=== PATIENT | male | born 1950 | race American Indian/Alaskan Native ===

== ENCOUNTER 2017-01-05 08:07 | Outpatient (CLI) | payer BC ==
[2017-01-05] MEDS ORDERED: XYLOCAINE TOPICAL 4% TP ONE ×2 (08:20→16:28)
== END 2017-01-05 08:08 | disposition home or self-care (01) ==
LOC: WOUND 08:07
PROVIDERS: ATTEND Surgery

== ENCOUNTER 2017-01-12 09:01 | Outpatient (CLI) | payer BC ==
[2017-01-12] MEDS ORDERED: XYLOCAINE TOPICAL 4% TP ONE ×2 (09:04→10:00)
== END 2017-01-12 09:02 | disposition home or self-care (01) ==
LOC: WOUND 09:01
PROVIDERS: ATTEND Internal Medicine
DX: I87.2 Venous insufficiency (chronic) (peripheral) (principal); L97.822 Non-pressure chronic ulcer of other part of left lower leg with fat layer exposed; I10 Essential (primary) hypertension; Z86.718 Personal history of other venous thrombosis and embolism; Z87.891 Personal history of nicotine dependence
CPT/HCPCS: 87075; 87076; 87116; 87186

== ENCOUNTER 2017-01-19 09:02 | Outpatient (CLI) | payer BC ==
[2017-01-19] MEDS ORDERED: XYLOCAINE TOPICAL 4% TP ONE (09:21)
== END 2017-01-19 09:03 | disposition home or self-care (01) ==
LOC: WOUND 09:02
PROVIDERS: ATTEND Surgery
DX: I87.2 Venous insufficiency (chronic) (peripheral) (principal); L97.822 Non-pressure chronic ulcer of other part of left lower leg with fat layer exposed; I10 Essential (primary) hypertension; Z86.718 Personal history of other venous thrombosis and embolism; Z87.891 Personal history of nicotine dependence

== ENCOUNTER 2017-01-26 09:04 | Outpatient (CLI) | payer BC ==
[2017-01-26] MEDS ORDERED: XYLOCAINE TOPICAL 4% TP ONE ×2 (09:13→10:00)
== END 2017-01-26 09:05 | disposition home or self-care (01) ==
LOC: WOUND 09:04
PROVIDERS: ATTEND Surgery
DX: I87.312 Chronic venous hypertension (idiopathic) with ulcer of left lower extremity (principal); L97.822 Non-pressure chronic ulcer of other part of left lower leg with fat layer exposed; Z86.718 Personal history of other venous thrombosis and embolism; Z87.891 Personal history of nicotine dependence

== ENCOUNTER 2017-02-02 09:06 | Outpatient (CLI) | payer BC ==
[2017-02-02] MEDS ORDERED: XYLOCAINE TOPICAL 4% TP ONE ×2 (09:24→09:28)
== END 2017-02-02 09:07 | disposition home or self-care (01) ==
LOC: WOUND 09:06
PROVIDERS: ATTEND Surgery
DX: I87.312 Chronic venous hypertension (idiopathic) with ulcer of left lower extremity (principal); L97.822 Non-pressure chronic ulcer of other part of left lower leg with fat layer exposed; I10 Essential (primary) hypertension; Z86.718 Personal history of other venous thrombosis and embolism; Z87.891 Personal history of nicotine dependence

== ENCOUNTER 2017-02-09 09:10 | Outpatient (CLI) | payer BC ==
[2017-02-09] MEDS ORDERED: XYLOCAINE TOPICAL 4% TP ONE ×2 (09:41→15:27)
== END 2017-02-09 09:11 | disposition home or self-care (01) ==
LOC: WOUND 09:10
PROVIDERS: ATTEND Surgery
DX: I87.2 Venous insufficiency (chronic) (peripheral) (principal); L97.822 Non-pressure chronic ulcer of other part of left lower leg with fat layer exposed; I10 Essential (primary) hypertension; Z86.718 Personal history of other venous thrombosis and embolism; Z87.891 Personal history of nicotine dependence

== ENCOUNTER 2017-02-16 09:11 | Outpatient (CLI) | payer BC ==
[2017-02-16] MEDS ORDERED: XYLOCAINE TOPICAL 4% TP ONE ×2 (09:59→10:30)
== END 2017-02-16 09:12 | disposition home or self-care (01) ==
LOC: WOUND 09:11
PROVIDERS: ATTEND Internal Medicine
DX: I87.2 Venous insufficiency (chronic) (peripheral) (principal); L97.822 Non-pressure chronic ulcer of other part of left lower leg with fat layer exposed; I10 Essential (primary) hypertension; Z86.718 Personal history of other venous thrombosis and embolism; Z87.891 Personal history of nicotine dependence

== ENCOUNTER 2017-02-18 11:45 | Outpatient (CLI) | payer BC | END 2017-02-18 11:46 | disposition home or self-care (01) | LOC: WOUND 11:45 | PROVIDERS: ATTEND Podiatrist | DX: L97.822 Non-pressure chronic ulcer of other part of left lower leg with fat layer exposed (principal); I82.502 Chronic embolism and thrombosis of unspecified deep veins of left lower extremity; I10 Essential (primary) hypertension; Z86.718 Personal history of other venous thrombosis and embolism; Z87.891 Personal history of nicotine dependence | CPT/HCPCS: 29580 ==

== ENCOUNTER 2017-02-22 09:07 | Outpatient (CLI) | payer BC ==
[2017-02-22] MEDS ORDERED: XYLOCAINE TOPICAL 4% TP ONE (09:18)
== END 2017-02-22 09:08 | disposition home or self-care (01) ==
LOC: WOUND 09:07
PROVIDERS: ATTEND Surgery
DX: I87.2 Venous insufficiency (chronic) (peripheral) (principal); L97.821 Non-pressure chronic ulcer of other part of left lower leg limited to breakdown of skin; I10 Essential (primary) hypertension; Z86.718 Personal history of other venous thrombosis and embolism; Z87.891 Personal history of nicotine dependence

== ENCOUNTER 2017-02-25 11:38 | Outpatient (CLI) | payer BC | END 2017-02-25 11:39 | disposition home or self-care (01) | LOC: WOUND 11:38 | PROVIDERS: ATTEND Podiatrist | DX: I87.2 Venous insufficiency (chronic) (peripheral) (principal); L97.822 Non-pressure chronic ulcer of other part of left lower leg with fat layer exposed; I10 Essential (primary) hypertension; Z86.718 Personal history of other venous thrombosis and embolism; Z87.891 Personal history of nicotine dependence; Z72.89 Other problems related to lifestyle | CPT/HCPCS: 29580 ==

== ENCOUNTER 2017-03-02 08:49 | Outpatient (CLI) | payer BC ==
[2017-03-02] MEDS ORDERED: XYLOCAINE TOPICAL 4% TP ONE (09:26)
== END 2017-03-02 08:50 | disposition home or self-care (01) ==
LOC: WOUND 08:49
PROVIDERS: ATTEND Surgery
DX: I87.2 Venous insufficiency (chronic) (peripheral) (principal); L97.822 Non-pressure chronic ulcer of other part of left lower leg with fat layer exposed; I10 Essential (primary) hypertension; Z87.01 Personal history of pneumonia (recurrent); Z86.718 Personal history of other venous thrombosis and embolism; Z87.891 Personal history of nicotine dependence; Z72.89 Other problems related to lifestyle

== ENCOUNTER 2017-03-04 11:43 | Outpatient (CLI) | payer BC | END 2017-03-04 11:44 | disposition home or self-care (01) | LOC: WOUND 11:43 | PROVIDERS: ATTEND Surgery | DX: I87.2 Venous insufficiency (chronic) (peripheral) (principal); L97.821 Non-pressure chronic ulcer of other part of left lower leg limited to breakdown of skin; I10 Essential (primary) hypertension; Z87.01 Personal history of pneumonia (recurrent); Z86.718 Personal history of other venous thrombosis and embolism; Z87.891 Personal history of nicotine dependence; Z72.89 Other problems related to lifestyle | CPT/HCPCS: 29580; G0463; 99212 ==

== ENCOUNTER 2017-03-09 09:13 | Outpatient (CLI) | payer BC ==
[2017-03-09] MEDS ORDERED: XYLOCAINE TOPICAL 4% TP ONE (09:31)
== END 2017-03-09 09:14 | disposition home or self-care (01) ==
LOC: WOUND 09:13
PROVIDERS: ATTEND Surgery
DX: I87.2 Venous insufficiency (chronic) (peripheral) (principal); L97.822 Non-pressure chronic ulcer of other part of left lower leg with fat layer exposed; I10 Essential (primary) hypertension; Z87.01 Personal history of pneumonia (recurrent); Z86.718 Personal history of other venous thrombosis and embolism; Z87.891 Personal history of nicotine dependence; Z72.89 Other problems related to lifestyle

== ENCOUNTER 2017-03-11 13:33 | Outpatient (CLI) | payer BC | END 2017-03-11 13:34 | disposition home or self-care (01) | LOC: WOUND 13:33 | PROVIDERS: ATTEND Podiatrist | DX: I87.2 Venous insufficiency (chronic) (peripheral) (principal); L97.822 Non-pressure chronic ulcer of other part of left lower leg with fat layer exposed; I10 Essential (primary) hypertension; Z86.718 Personal history of other venous thrombosis and embolism; Z87.01 Personal history of pneumonia (recurrent); Z87.891 Personal history of nicotine dependence; Z72.89 Other problems related to lifestyle | CPT/HCPCS: 29580 ==

== ENCOUNTER 2017-03-15 10:06 | Outpatient (CLI) | payer BC ==
[2017-03-15] MEDS ORDERED: XYLOCAINE TOPICAL 4% TP ONE (11:00)
== END 2017-03-15 10:07 | disposition home or self-care (01) ==
LOC: WOUND 10:06
PROVIDERS: ATTEND Surgery
DX: I87.2 Venous insufficiency (chronic) (peripheral) (principal); L97.822 Non-pressure chronic ulcer of other part of left lower leg with fat layer exposed; I10 Essential (primary) hypertension; Z87.01 Personal history of pneumonia (recurrent); Z86.718 Personal history of other venous thrombosis and embolism; Z87.891 Personal history of nicotine dependence; Z72.89 Other problems related to lifestyle

== ENCOUNTER 2017-03-18 13:23 | Outpatient (CLI) | payer BC | END 2017-03-18 13:24 | disposition home or self-care (01) | LOC: WOUND 13:23 | PROVIDERS: ATTEND Podiatrist | DX: L97.822 Non-pressure chronic ulcer of other part of left lower leg with fat layer exposed (principal); I10 Essential (primary) hypertension; Z87.01 Personal history of pneumonia (recurrent); Z86.718 Personal history of other venous thrombosis and embolism; Z87.891 Personal history of nicotine dependence; Z72.89 Other problems related to lifestyle | CPT/HCPCS: 29580; G0463; 99213 ==

== ENCOUNTER 2017-03-22 10:13 | Outpatient (CLI) | payer BC ==
[2017-03-22] MEDS ORDERED: XYLOCAINE TOPICAL 4% TP ONE ×2 (10:28→10:42)
== END 2017-03-22 10:14 | disposition home or self-care (01) ==
LOC: WOUND 10:13
PROVIDERS: ATTEND Surgery
DX: I87.2 Venous insufficiency (chronic) (peripheral) (principal); L97.822 Non-pressure chronic ulcer of other part of left lower leg with fat layer exposed; I10 Essential (primary) hypertension; Z87.01 Personal history of pneumonia (recurrent); Z86.718 Personal history of other venous thrombosis and embolism; Z87.891 Personal history of nicotine dependence; Z72.89 Other problems related to lifestyle

== ENCOUNTER 2017-03-25 12:43 | Outpatient (CLI) | payer BC | END 2017-03-25 12:44 | disposition home or self-care (01) | LOC: WOUND 12:43 | PROVIDERS: ATTEND Podiatrist | DX: I87.2 Venous insufficiency (chronic) (peripheral) (principal); L97.822 Non-pressure chronic ulcer of other part of left lower leg with fat layer exposed; I10 Essential (primary) hypertension; Z87.01 Personal history of pneumonia (recurrent); Z86.718 Personal history of other venous thrombosis and embolism; Z87.891 Personal history of nicotine dependence; Z72.89 Other problems related to lifestyle | CPT/HCPCS: 29580 ==

== ENCOUNTER 2017-03-29 09:45 | Outpatient (CLI) | payer BC ==
[2017-03-29] MEDS ORDERED: XYLOCAINE TOPICAL 2% TP ONE ×2 (10:07→10:21)
== END 2017-03-29 09:46 | disposition home or self-care (01) ==
LOC: WOUND 09:45
PROVIDERS: ATTEND Surgery
DX: I87.2 Venous insufficiency (chronic) (peripheral) (principal); L97.822 Non-pressure chronic ulcer of other part of left lower leg with fat layer exposed; I10 Essential (primary) hypertension; Z87.01 Personal history of pneumonia (recurrent); Z86.718 Personal history of other venous thrombosis and embolism; Z87.891 Personal history of nicotine dependence; Z72.89 Other problems related to lifestyle

== ENCOUNTER 2017-04-01 11:20 | Outpatient (CLI) | payer BC | END 2017-04-01 11:21 | disposition home or self-care (01) | LOC: WOUND 11:20 | PROVIDERS: ATTEND Podiatrist | DX: I87.2 Venous insufficiency (chronic) (peripheral) (principal); L97.822 Non-pressure chronic ulcer of other part of left lower leg with fat layer exposed; Z87.01 Personal history of pneumonia (recurrent); Z86.718 Personal history of other venous thrombosis and embolism; Z87.891 Personal history of nicotine dependence; Z72.89 Other problems related to lifestyle | CPT/HCPCS: 29580 ==

== ENCOUNTER 2017-04-05 09:13 | Outpatient (CLI) | payer BC ==
[2017-04-05] MEDS ORDERED: XYLOCAINE TOPICAL 4% TP ONE (09:27)
== END 2017-04-05 09:14 | disposition home or self-care (01) ==
LOC: WOUND 09:13
PROVIDERS: ATTEND Surgery
DX: I87.2 Venous insufficiency (chronic) (peripheral) (principal); L97.822 Non-pressure chronic ulcer of other part of left lower leg with fat layer exposed; I10 Essential (primary) hypertension; Z87.01 Personal history of pneumonia (recurrent); Z86.718 Personal history of other venous thrombosis and embolism; Z87.891 Personal history of nicotine dependence; Z72.89 Other problems related to lifestyle

== ENCOUNTER 2017-04-08 13:47 | Outpatient (CLI) | payer BC | END 2017-04-08 13:48 | disposition home or self-care (01) | LOC: WOUND 13:47 | PROVIDERS: ATTEND Podiatrist | DX: I87.2 Venous insufficiency (chronic) (peripheral) (principal); L97.822 Non-pressure chronic ulcer of other part of left lower leg with fat layer exposed; I10 Essential (primary) hypertension; Z87.01 Personal history of pneumonia (recurrent); Z86.718 Personal history of other venous thrombosis and embolism; Z87.891 Personal history of nicotine dependence; Z72.89 Other problems related to lifestyle | CPT/HCPCS: 29580 ==

== ENCOUNTER 2017-04-12 09:38 | Outpatient (CLI) | payer BC ==
[2017-04-12] MEDS ORDERED: XYLOCAINE TOPICAL 4% TP ONE (10:07)
== END 2017-04-12 09:39 | disposition home or self-care (01) ==
LOC: WOUND 09:38
PROVIDERS: ATTEND Surgery
DX: I87.2 Venous insufficiency (chronic) (peripheral) (principal); L97.822 Non-pressure chronic ulcer of other part of left lower leg with fat layer exposed; I10 Essential (primary) hypertension; Z87.01 Personal history of pneumonia (recurrent); Z86.718 Personal history of other venous thrombosis and embolism; Z87.891 Personal history of nicotine dependence; Z72.89 Other problems related to lifestyle

== ENCOUNTER 2017-04-15 13:12 | Outpatient (CLI) | payer BC | END 2017-04-15 13:13 | disposition home or self-care (01) | LOC: WOUND 13:12 | PROVIDERS: ATTEND Podiatrist | DX: I87.2 Venous insufficiency (chronic) (peripheral) (principal); L97.822 Non-pressure chronic ulcer of other part of left lower leg with fat layer exposed; I10 Essential (primary) hypertension; Z87.01 Personal history of pneumonia (recurrent); Z86.718 Personal history of other venous thrombosis and embolism; Z87.891 Personal history of nicotine dependence; Z72.89 Other problems related to lifestyle | CPT/HCPCS: 29580 ==

== ENCOUNTER 2017-04-19 09:41 | Outpatient (CLI) | payer BC ==
[2017-04-19] MEDS ORDERED: XYLOCAINE TOPICAL 4% TP ONE ×2 (09:55→10:17)
== END 2017-04-19 09:42 | disposition home or self-care (01) ==
LOC: WOUND 09:41
PROVIDERS: ATTEND Surgery
DX: I87.2 Venous insufficiency (chronic) (peripheral) (principal); L97.822 Non-pressure chronic ulcer of other part of left lower leg with fat layer exposed; I10 Essential (primary) hypertension; Z87.01 Personal history of pneumonia (recurrent); Z86.718 Personal history of other venous thrombosis and embolism; Z87.891 Personal history of nicotine dependence; Z72.89 Other problems related to lifestyle

== ENCOUNTER 2017-04-22 12:49 | Outpatient (CLI) | payer BC | END 2017-04-22 12:50 | disposition home or self-care (01) | LOC: WOUND 12:49 | PROVIDERS: ATTEND Podiatrist | DX: I87.2 Venous insufficiency (chronic) (peripheral) (principal); L97.822 Non-pressure chronic ulcer of other part of left lower leg with fat layer exposed; I10 Essential (primary) hypertension; Z87.01 Personal history of pneumonia (recurrent); Z86.718 Personal history of other venous thrombosis and embolism; Z87.891 Personal history of nicotine dependence; Z72.89 Other problems related to lifestyle | CPT/HCPCS: 29580 ==

== ENCOUNTER 2017-04-26 10:18 | Outpatient (CLI) | payer BC ==
[~2017-04-26 10:18] MED LIST: XYLOCAINE TOPICAL 4% TP ONE
[2017-04-26] MEDS ORDERED: XYLOCAINE TOPICAL 4% TP ONE (10:30)
== END 2017-04-26 10:19 | disposition home or self-care (01) ==
LOC: WOUND 10:18
PROVIDERS: ATTEND Surgery
DX: I87.2 Venous insufficiency (chronic) (peripheral) (principal); L97.822 Non-pressure chronic ulcer of other part of left lower leg with fat layer exposed; I10 Essential (primary) hypertension; Z87.01 Personal history of pneumonia (recurrent); Z86.718 Personal history of other venous thrombosis and embolism; Z87.891 Personal history of nicotine dependence; Z72.89 Other problems related to lifestyle

== ENCOUNTER 2017-04-29 13:05 | Outpatient (CLI) | payer BC | END 2017-04-29 13:06 | disposition home or self-care (01) | LOC: WOUND 13:05 | PROVIDERS: ATTEND Podiatrist | DX: I87.2 Venous insufficiency (chronic) (peripheral) (principal); L97.822 Non-pressure chronic ulcer of other part of left lower leg with fat layer exposed; I10 Essential (primary) hypertension; Z87.01 Personal history of pneumonia (recurrent); Z86.718 Personal history of other venous thrombosis and embolism; Z87.891 Personal history of nicotine dependence; Z72.89 Other problems related to lifestyle | CPT/HCPCS: 29580 ==

== ENCOUNTER 2017-05-03 09:17 | Outpatient (CLI) | payer BC ==
[2017-05-03] MEDS ORDERED: XYLOCAINE TOPICAL 4% TP ONE (10:08)
== END 2017-05-03 09:18 | disposition home or self-care (01) ==
LOC: WOUND 09:17
PROVIDERS: ATTEND Surgery
DX: I87.2 Venous insufficiency (chronic) (peripheral) (principal); L97.822 Non-pressure chronic ulcer of other part of left lower leg with fat layer exposed; I10 Essential (primary) hypertension; Z87.01 Personal history of pneumonia (recurrent); Z86.718 Personal history of other venous thrombosis and embolism; Z87.891 Personal history of nicotine dependence; Z72.89 Other problems related to lifestyle

== ENCOUNTER 2017-05-06 13:06 | Outpatient (CLI) | payer BC | END 2017-05-06 13:07 | disposition home or self-care (01) | LOC: WOUND 13:06 | PROVIDERS: ATTEND Podiatrist | DX: I87.2 Venous insufficiency (chronic) (peripheral) (principal); L97.822 Non-pressure chronic ulcer of other part of left lower leg with fat layer exposed; I10 Essential (primary) hypertension; Z87.01 Personal history of pneumonia (recurrent); Z86.718 Personal history of other venous thrombosis and embolism; Z87.891 Personal history of nicotine dependence; Z72.89 Other problems related to lifestyle | CPT/HCPCS: 29580 ==

== ENCOUNTER 2017-05-10 09:43 | Outpatient (CLI) | payer BC ==
[2017-05-10] MEDS ORDERED: XYLOCAINE TOPICAL 4% TP ONE ×2 (10:05→10:10)
== END 2017-05-10 09:44 | disposition home or self-care (01) ==
LOC: WOUND 09:43
PROVIDERS: ATTEND Surgery
DX: I87.2 Venous insufficiency (chronic) (peripheral) (principal); L97.822 Non-pressure chronic ulcer of other part of left lower leg with fat layer exposed; I10 Essential (primary) hypertension; Z87.01 Personal history of pneumonia (recurrent); Z86.718 Personal history of other venous thrombosis and embolism; Z87.891 Personal history of nicotine dependence; Z72.89 Other problems related to lifestyle

== ENCOUNTER 2017-05-13 12:54 | Outpatient (CLI) | payer BC | END 2017-05-13 12:55 | disposition home or self-care (01) | LOC: WOUND 12:54 | PROVIDERS: ATTEND Podiatrist | DX: I87.2 Venous insufficiency (chronic) (peripheral) (principal); L97.822 Non-pressure chronic ulcer of other part of left lower leg with fat layer exposed; I10 Essential (primary) hypertension; Z87.01 Personal history of pneumonia (recurrent); Z86.718 Personal history of other venous thrombosis and embolism; Z87.891 Personal history of nicotine dependence; Z72.89 Other problems related to lifestyle | CPT/HCPCS: 29580 ==

== ENCOUNTER 2017-05-17 09:09 | Outpatient (CLI) | payer BC ==
[2017-05-17] MEDS ORDERED: XYLOCAINE TOPICAL 4% TP ONE ×2 (09:34→09:39)
== END 2017-05-17 09:10 | disposition home or self-care (01) ==
LOC: WOUND 09:09
PROVIDERS: ATTEND Surgery
DX: I87.2 Venous insufficiency (chronic) (peripheral) (principal); L97.822 Non-pressure chronic ulcer of other part of left lower leg with fat layer exposed; I10 Essential (primary) hypertension; Z87.01 Personal history of pneumonia (recurrent); Z86.718 Personal history of other venous thrombosis and embolism; Z87.891 Personal history of nicotine dependence; Z72.89 Other problems related to lifestyle
CPT/HCPCS: C5271; Q4102

== ENCOUNTER 2017-05-20 11:12 | Outpatient (CLI) | payer BC | END 2017-05-20 11:13 | disposition home or self-care (01) | LOC: WOUND 11:12 | PROVIDERS: ATTEND Podiatrist | DX: I87.2 Venous insufficiency (chronic) (peripheral) (principal); L97.822 Non-pressure chronic ulcer of other part of left lower leg with fat layer exposed; I10 Essential (primary) hypertension; Z87.01 Personal history of pneumonia (recurrent); Z86.718 Personal history of other venous thrombosis and embolism; Z87.891 Personal history of nicotine dependence; Z72.89 Other problems related to lifestyle | CPT/HCPCS: 29580 ==

== ENCOUNTER 2017-05-24 09:35 | Outpatient (CLI) | payer BC ==
[2017-05-24] MEDS ORDERED: XYLOCAINE TOPICAL 4% TP ONE (10:01)
== END 2017-05-24 09:36 | disposition home or self-care (01) ==
LOC: WOUND 09:35
PROVIDERS: ATTEND Surgery
DX: I87.2 Venous insufficiency (chronic) (peripheral) (principal); L97.822 Non-pressure chronic ulcer of other part of left lower leg with fat layer exposed; I10 Essential (primary) hypertension; Z87.01 Personal history of pneumonia (recurrent); Z86.718 Personal history of other venous thrombosis and embolism; Z87.891 Personal history of nicotine dependence; Z72.89 Other problems related to lifestyle
CPT/HCPCS: C5271; Q4102

== ENCOUNTER 2017-05-27 13:09 | Outpatient (CLI) | payer BC | END 2017-05-27 13:10 | disposition home or self-care (01) | LOC: WOUND 13:09 | PROVIDERS: ATTEND Podiatrist | DX: I87.2 Venous insufficiency (chronic) (peripheral) (principal); L97.822 Non-pressure chronic ulcer of other part of left lower leg with fat layer exposed; I10 Essential (primary) hypertension; Z87.01 Personal history of pneumonia (recurrent); Z86.718 Personal history of other venous thrombosis and embolism; Z87.891 Personal history of nicotine dependence; Z72.89 Other problems related to lifestyle | CPT/HCPCS: 29580; 29581 ==

== ENCOUNTER 2017-05-31 09:26 | Outpatient (CLI) | payer BC ==
[2017-05-31] MEDS ORDERED: XYLOCAINE TOPICAL 4% TP ONE ×2 (10:12→14:34)
[2017-05-31] MEDS ORDERED: SODIUM CHLORIDE FLUSH SYRINGE 10 ML IV ONE (14:34)
== END 2017-05-31 09:27 | disposition home or self-care (01) ==
LOC: WOUND 09:26
PROVIDERS: ATTEND Surgery
DX: I87.2 Venous insufficiency (chronic) (peripheral) (principal); L97.822 Non-pressure chronic ulcer of other part of left lower leg with fat layer exposed; I10 Essential (primary) hypertension; Z87.01 Personal history of pneumonia (recurrent); Z86.718 Personal history of other venous thrombosis and embolism; Z87.891 Personal history of nicotine dependence; Z72.89 Other problems related to lifestyle
CPT/HCPCS: C5271; Q4102

== ENCOUNTER 2017-06-03 13:06 | Outpatient (CLI) | payer BC | END 2017-06-03 13:07 | disposition home or self-care (01) | LOC: WOUND 13:06 | PROVIDERS: ATTEND Podiatrist | DX: I87.2 Venous insufficiency (chronic) (peripheral) (principal); L97.822 Non-pressure chronic ulcer of other part of left lower leg with fat layer exposed; I10 Essential (primary) hypertension; Z87.01 Personal history of pneumonia (recurrent); Z86.718 Personal history of other venous thrombosis and embolism; Z87.891 Personal history of nicotine dependence; Z72.89 Other problems related to lifestyle | CPT/HCPCS: 29580 ==

== ENCOUNTER 2017-06-07 09:21 | Outpatient (CLI) | payer BC ==
[2017-06-07] MEDS ORDERED: DAKIN'S FULL STRENGTH ONE (11:10)
[2017-06-07] MEDS ORDERED: XYLOCAINE TOPICAL 4% TP ONE (11:30)
[2017-06-07] MEDS ORDERED: DAKIN'S FULL STRENGTH TP PRN (14:48)
== END 2017-06-07 09:22 | disposition home or self-care (01) ==
LOC: WOUND 09:21
PROVIDERS: ATTEND Surgery
DX: I87.2 Venous insufficiency (chronic) (peripheral) (principal); L97.821 Non-pressure chronic ulcer of other part of left lower leg limited to breakdown of skin; I10 Essential (primary) hypertension; Z87.01 Personal history of pneumonia (recurrent); Z86.718 Personal history of other venous thrombosis and embolism; Z87.891 Personal history of nicotine dependence; Z72.89 Other problems related to lifestyle
CPT/HCPCS: 87075; 87076; 87116; 87186

== ENCOUNTER 2017-06-14 09:33 | Outpatient (CLI) | payer BC ==
[2017-06-14] MEDS ORDERED: XYLOCAINE TOPICAL 4% TP ONE ×2 (10:00→10:05)
== END 2017-06-14 09:34 | disposition home or self-care (01) ==
LOC: WOUND 09:33
PROVIDERS: ATTEND Surgery
DX: I87.2 Venous insufficiency (chronic) (peripheral) (principal); L97.821 Non-pressure chronic ulcer of other part of left lower leg limited to breakdown of skin; I10 Essential (primary) hypertension; Z87.01 Personal history of pneumonia (recurrent); Z86.718 Personal history of other venous thrombosis and embolism; Z87.891 Personal history of nicotine dependence; Z72.89 Other problems related to lifestyle

== ENCOUNTER 2017-06-17 13:00 | Outpatient (CLI) | payer BC | END 2017-06-17 13:01 | disposition home or self-care (01) | LOC: WOUND 13:00 | PROVIDERS: ATTEND Podiatrist | DX: I87.321 Chronic venous hypertension (idiopathic) with inflammation of right lower extremity (principal); L97.822 Non-pressure chronic ulcer of other part of left lower leg with fat layer exposed; Z86.718 Personal history of other venous thrombosis and embolism; Z87.891 Personal history of nicotine dependence; Z72.89 Other problems related to lifestyle | CPT/HCPCS: 29580 ==

== ENCOUNTER 2017-06-21 09:25 | Outpatient (CLI) | payer BC ==
[2017-06-21] MEDS ORDERED: XYLOCAINE TOPICAL 4% TP ONE ×2 (10:09→10:22)
== END 2017-06-21 09:26 | disposition home or self-care (01) ==
LOC: WOUND 09:25
PROVIDERS: ATTEND Surgery
DX: I87.2 Venous insufficiency (chronic) (peripheral) (principal); L97.821 Non-pressure chronic ulcer of other part of left lower leg limited to breakdown of skin; I10 Essential (primary) hypertension; Z86.718 Personal history of other venous thrombosis and embolism; Z87.891 Personal history of nicotine dependence

== ENCOUNTER 2017-06-24 13:20 | Outpatient (CLI) | payer BC | END 2017-06-24 13:21 | disposition home or self-care (01) | LOC: WOUND 13:20 | PROVIDERS: ATTEND Podiatrist | DX: I87.2 Venous insufficiency (chronic) (peripheral) (principal); L97.822 Non-pressure chronic ulcer of other part of left lower leg with fat layer exposed; I82.502 Chronic embolism and thrombosis of unspecified deep veins of left lower extremity; I10 Essential (primary) hypertension; Z87.01 Personal history of pneumonia (recurrent); Z87.891 Personal history of nicotine dependence; Z72.89 Other problems related to lifestyle | CPT/HCPCS: 29580 ==

== ENCOUNTER 2017-06-28 09:35 | Outpatient (CLI) | payer BC ==
[2017-06-28] MEDS ORDERED: XYLOCAINE TOPICAL 4% TP ONE (10:20)
== END 2017-06-28 09:36 | disposition home or self-care (01) ==
LOC: WOUND 09:35
PROVIDERS: ATTEND Surgery
DX: I87.2 Venous insufficiency (chronic) (peripheral) (principal); L97.822 Non-pressure chronic ulcer of other part of left lower leg with fat layer exposed; I10 Essential (primary) hypertension; Z87.01 Personal history of pneumonia (recurrent); Z86.718 Personal history of other venous thrombosis and embolism; Z87.891 Personal history of nicotine dependence; Z72.89 Other problems related to lifestyle

== ENCOUNTER 2017-07-05 09:21 | Outpatient (CLI) | payer BC ==
[2017-07-05] MEDS ORDERED: XYLOCAINE TOPICAL 4% TP ONE (09:29)
== END 2017-07-05 09:22 | disposition home or self-care (01) ==
LOC: WOUND 09:21
PROVIDERS: ATTEND Surgery
DX: I87.2 Venous insufficiency (chronic) (peripheral) (principal); L97.822 Non-pressure chronic ulcer of other part of left lower leg with fat layer exposed; I10 Essential (primary) hypertension; Z87.01 Personal history of pneumonia (recurrent); Z87.891 Personal history of nicotine dependence; Z72.89 Other problems related to lifestyle

== ENCOUNTER 2017-07-19 09:15 | Outpatient (CLI) | payer BC ==
[2017-07-19] MEDS ORDERED: XYLOCAINE TOPICAL 4% TP ONE ×2 (09:24)
== END 2017-07-19 09:16 | disposition home or self-care (01) ==
LOC: WOUND 09:15
PROVIDERS: ATTEND Surgery
DX: I87.2 Venous insufficiency (chronic) (peripheral) (principal); L97.822 Non-pressure chronic ulcer of other part of left lower leg with fat layer exposed; I10 Essential (primary) hypertension; Z86.718 Personal history of other venous thrombosis and embolism; Z87.891 Personal history of nicotine dependence

== ENCOUNTER 2017-07-26 09:56 | Outpatient (CLI) | payer BC ==
[2017-07-26] MEDS ORDERED: XYLOCAINE TOPICAL 4% TP ONE (10:04)
== END 2017-07-26 09:57 | disposition home or self-care (01) ==
LOC: WOUND 09:56
PROVIDERS: ATTEND Surgery
DX: I87.2 Venous insufficiency (chronic) (peripheral) (principal); L97.822 Non-pressure chronic ulcer of other part of left lower leg with fat layer exposed; I10 Essential (primary) hypertension; Z87.01 Personal history of pneumonia (recurrent); Z86.718 Personal history of other venous thrombosis and embolism; Z87.891 Personal history of nicotine dependence; Z72.89 Other problems related to lifestyle

== ENCOUNTER 2017-08-02 09:40 | Outpatient (CLI) | payer BC ==
[2017-08-02] MEDS ORDERED: XYLOCAINE TOPICAL 4% TP ONE ×2 (10:30→10:38)
== END 2017-08-02 09:41 | disposition home or self-care (01) ==
LOC: WOUND 09:40
PROVIDERS: ATTEND Surgery
DX: I87.2 Venous insufficiency (chronic) (peripheral) (principal); L97.822 Non-pressure chronic ulcer of other part of left lower leg with fat layer exposed; I10 Essential (primary) hypertension; Z86.718 Personal history of other venous thrombosis and embolism; Z87.891 Personal history of nicotine dependence; Z72.89 Other problems related to lifestyle

== ENCOUNTER 2017-08-05 13:58 | Outpatient (CLI) | payer BC | END 2017-08-05 13:59 | disposition home or self-care (01) | LOC: WOUND 13:58 | PROVIDERS: ATTEND Podiatrist | DX: I87.2 Venous insufficiency (chronic) (peripheral) (principal); L97.822 Non-pressure chronic ulcer of other part of left lower leg with fat layer exposed; I10 Essential (primary) hypertension; Z86.718 Personal history of other venous thrombosis and embolism; Z87.891 Personal history of nicotine dependence | CPT/HCPCS: 29580 ==

== ENCOUNTER 2017-08-09 09:31 | Outpatient (CLI) | payer BC ==
[2017-08-09] MEDS ORDERED: XYLOCAINE TOPICAL 4% TP ONE ×2 (10:09)
== END 2017-08-09 09:32 | disposition home or self-care (01) ==
LOC: WOUND 09:31
PROVIDERS: ATTEND Surgery
DX: I87.2 Venous insufficiency (chronic) (peripheral) (principal); L97.822 Non-pressure chronic ulcer of other part of left lower leg with fat layer exposed; I10 Essential (primary) hypertension; I82.502 Chronic embolism and thrombosis of unspecified deep veins of left lower extremity; S80.812D Abrasion, left lower leg, subsequent encounter; Z87.891 Personal history of nicotine dependence; Z86.718 Personal history of other venous thrombosis and embolism; X58.XXXD Exposure to other specified factors, subsequent encounter

== ENCOUNTER 2017-08-16 09:33 | Outpatient (CLI) | payer BC ==
[2017-08-16] MEDS ORDERED: XYLOCAINE TOPICAL 4% TP ONE (09:44)
== END 2017-08-16 09:34 | disposition home or self-care (01) ==
LOC: WOUND 09:33
PROVIDERS: ATTEND Surgery
DX: I87.2 Venous insufficiency (chronic) (peripheral) (principal); L97.822 Non-pressure chronic ulcer of other part of left lower leg with fat layer exposed; Z86.718 Personal history of other venous thrombosis and embolism; Z87.891 Personal history of nicotine dependence; Z72.89 Other problems related to lifestyle

== ENCOUNTER 2017-08-23 09:36 | Outpatient (CLI) | payer BC ==
[2017-08-23] MEDS ORDERED: XYLOCAINE TOPICAL 4% TP ONE (10:00)
== END 2017-08-23 09:37 | disposition home or self-care (01) ==
LOC: WOUND 09:36
PROVIDERS: ATTEND Podiatrist
DX: I87.2 Venous insufficiency (chronic) (peripheral) (principal); L97.822 Non-pressure chronic ulcer of other part of left lower leg with fat layer exposed; I10 Essential (primary) hypertension; Z87.891 Personal history of nicotine dependence; Z86.718 Personal history of other venous thrombosis and embolism; Z72.89 Other problems related to lifestyle

== ENCOUNTER 2017-08-30 09:41 | Outpatient (CLI) | payer BC ==
[2017-08-30] MEDS ORDERED: XYLOCAINE TOPICAL 4% TP ONE (10:29)
== END 2017-08-30 09:42 | disposition home or self-care (01) ==
LOC: WOUND 09:41
PROVIDERS: ATTEND Surgery
DX: I87.2 Venous insufficiency (chronic) (peripheral) (principal); L97.822 Non-pressure chronic ulcer of other part of left lower leg with fat layer exposed; Z86.718 Personal history of other venous thrombosis and embolism; Z72.89 Other problems related to lifestyle

== ENCOUNTER 2017-09-02 13:11 | Outpatient (CLI) | payer BC | END 2017-09-02 13:12 | disposition home or self-care (01) | LOC: WOUND 13:11 | PROVIDERS: ATTEND Podiatrist | DX: I87.2 Venous insufficiency (chronic) (peripheral) (principal); L97.821 Non-pressure chronic ulcer of other part of left lower leg limited to breakdown of skin; I10 Essential (primary) hypertension; Z86.718 Personal history of other venous thrombosis and embolism; Z87.891 Personal history of nicotine dependence; Z72.89 Other problems related to lifestyle | CPT/HCPCS: 29580; G0463; 99213 ==

== ENCOUNTER 2017-09-06 09:45 | Outpatient (CLI) | payer BC ==
[2017-09-06] MEDS ORDERED: XYLOCAINE TOPICAL 4% TP ONE ×2 (10:17→10:24)
== END 2017-09-06 09:46 | disposition home or self-care (01) ==
LOC: WOUND 09:45
PROVIDERS: ATTEND Surgery
DX: I87.2 Venous insufficiency (chronic) (peripheral) (principal); L97.822 Non-pressure chronic ulcer of other part of left lower leg with fat layer exposed; I10 Essential (primary) hypertension; Z86.718 Personal history of other venous thrombosis and embolism; Z87.891 Personal history of nicotine dependence; Z72.89 Other problems related to lifestyle

== ENCOUNTER 2017-09-09 13:21 | Outpatient (CLI) | payer BC | END 2017-09-09 13:22 | disposition home or self-care (01) | LOC: WOUND 13:21 | PROVIDERS: ATTEND Podiatrist | DX: I87.2 Venous insufficiency (chronic) (peripheral) (principal); L97.821 Non-pressure chronic ulcer of other part of left lower leg limited to breakdown of skin; I10 Essential (primary) hypertension; Z86.718 Personal history of other venous thrombosis and embolism; Z87.891 Personal history of nicotine dependence; Z72.89 Other problems related to lifestyle | CPT/HCPCS: 29580; G0463 ==

== ENCOUNTER 2017-09-13 09:32 | Outpatient (CLI) | payer BC ==
[2017-09-13] MEDS ORDERED: XYLOCAINE TOPICAL 4% TP ONE (09:52)
[2017-09-13] MEDS ORDERED: NACL 0.9% 500 ML IR ONE (10:13)
[2017-09-13] MEDS ORDERED: NACL 0.9% IR PRN (12:59)
== END 2017-09-13 09:33 | disposition home or self-care (01) ==
LOC: WOUND 09:32
PROVIDERS: ATTEND Surgery
DX: I87.2 Venous insufficiency (chronic) (peripheral) (principal); L97.822 Non-pressure chronic ulcer of other part of left lower leg with fat layer exposed; I10 Essential (primary) hypertension; Z87.891 Personal history of nicotine dependence; Z72.89 Other problems related to lifestyle; Z86.718 Personal history of other venous thrombosis and embolism

== ENCOUNTER 2017-09-16 11:02 | Outpatient (CLI) | payer BC | END 2017-09-16 11:03 | disposition home or self-care (01) | LOC: WOUND 11:02 | PROVIDERS: ATTEND Podiatrist | DX: I87.2 Venous insufficiency (chronic) (peripheral) (principal); L97.822 Non-pressure chronic ulcer of other part of left lower leg with fat layer exposed; I10 Essential (primary) hypertension; Z86.718 Personal history of other venous thrombosis and embolism; Z87.891 Personal history of nicotine dependence; Z72.89 Other problems related to lifestyle | CPT/HCPCS: 29581 ==

== ENCOUNTER 2017-09-20 09:38 | Outpatient (CLI) | payer BC ==
[2017-09-20] MEDS ORDERED: XYLOCAINE TOPICAL 4% TP ONE (10:18)
[2017-09-20] MEDS ORDERED: XYLOCAINE 1% 20 mL ONE (10:19)
== END 2017-09-20 09:39 | disposition home or self-care (01) ==
LOC: WOUND 09:38
PROVIDERS: ATTEND Surgery
DX: I87.2 Venous insufficiency (chronic) (peripheral) (principal); L97.822 Non-pressure chronic ulcer of other part of left lower leg with fat layer exposed; I10 Essential (primary) hypertension; Z86.718 Personal history of other venous thrombosis and embolism; Z87.891 Personal history of nicotine dependence; Z72.89 Other problems related to lifestyle

== ENCOUNTER 2017-09-23 11:52 | Outpatient (CLI) | payer BC | END 2017-09-23 11:53 | disposition home or self-care (01) | LOC: WOUND 11:52 | PROVIDERS: ATTEND Podiatrist | DX: I87.2 Venous insufficiency (chronic) (peripheral) (principal); L97.822 Non-pressure chronic ulcer of other part of left lower leg with fat layer exposed; Z87.891 Personal history of nicotine dependence; Z86.718 Personal history of other venous thrombosis and embolism; Z72.89 Other problems related to lifestyle | CPT/HCPCS: 29581 ==

== ENCOUNTER 2017-09-27 09:44 | Outpatient (CLI) | payer BC ==
[2017-09-27] MEDS ORDERED: XYLOCAINE TOPICAL 4% TP ONE (10:18)
== END 2017-09-27 09:45 | disposition home or self-care (01) ==
LOC: WOUND 09:44
PROVIDERS: ATTEND Surgery
DX: I87.2 Venous insufficiency (chronic) (peripheral) (principal); L97.822 Non-pressure chronic ulcer of other part of left lower leg with fat layer exposed; I10 Essential (primary) hypertension; Z86.718 Personal history of other venous thrombosis and embolism; Z72.89 Other problems related to lifestyle; Z87.891 Personal history of nicotine dependence

== ENCOUNTER 2017-09-30 12:51 | Outpatient (CLI) | payer BC | END 2017-09-30 12:52 | disposition home or self-care (01) | LOC: WOUND 12:51 | PROVIDERS: ATTEND Podiatrist | DX: I87.2 Venous insufficiency (chronic) (peripheral) (principal); L97.822 Non-pressure chronic ulcer of other part of left lower leg with fat layer exposed; I10 Essential (primary) hypertension; Z86.718 Personal history of other venous thrombosis and embolism; Z87.891 Personal history of nicotine dependence; Z72.89 Other problems related to lifestyle | CPT/HCPCS: 29581 ==

== ENCOUNTER 2017-10-04 09:52 | Outpatient (CLI) | payer BC ==
[2017-10-04] MEDS ORDERED: XYLOCAINE TOPICAL 4% TP ONE ×2 (10:15→10:20)
== END 2017-10-04 09:53 | disposition home or self-care (01) ==
LOC: WOUND 09:52
PROVIDERS: ATTEND Surgery
DX: I87.2 Venous insufficiency (chronic) (peripheral) (principal); L97.822 Non-pressure chronic ulcer of other part of left lower leg with fat layer exposed; I10 Essential (primary) hypertension; Z87.891 Personal history of nicotine dependence; Z86.718 Personal history of other venous thrombosis and embolism; Z72.89 Other problems related to lifestyle

== ENCOUNTER 2017-10-06 16:08 | Outpatient (CLI) | payer BC, MEDICARE ==
[2017-10-06 12:46] LABS: Hematocrit 34.5 % (35.5-45.6); Hemoglobin 11.3 gm/dl (11.8-15.2); Mean Corpuscular HGB Conc 33 % (32-34); Mean Corpuscular Hemoglobin 32 pg (28-32); Mean Corpuscular Volume 97 fl (84-94); Platelet Count 136 K/mm3 (140-440); Red Blood Count 3.57 M/mm3 (3.65-5.03); Red Cell Distribution Width 14.5 % (13.2-15.2)
[2017-10-06 12:55] LABS: Bacteria,Urine 1+ /HPF (Negative); Bilirubin,Urine NEG (Negative); Blood,Urine MOD (Negative); Color,Urine Yellow (Yellow); Nitrite,Urine NEG (Negative); Urobilinogen,Urine < 2.0 mg/dL (<2.0)
[2017-10-06 13:05] LABS: Albumin 3.7 g/dL (3.9-5); Calcium 8.6 mg/dL (8.4-10.2)
[2017-10-06 13:35] LABS: Creatinine,Urine 93.4 mg/dL (0.1-20.0)
[2017-10-06 13:50] LABS: Protein/Creatinine Ratio,Urine 5.35
[2017-10-06 13:50] LABS: Hepatitis A Antibody IgM Non-Reactive (NonReactive); Hepatitis B Core IgM Non-Reactive (NonReactive); Hepatitis B Surface Antigen Non-Reactive (Negative); Hepatitis C Virus Antibody Non-Reactive (NonReactive)
--- NOTE | 2017-10-06 17:27 | Cat Scan Report ---
FINAL REPORT EXAM: CT ABDOMEN PELVIS WO CON HISTORY: ACUTE KIDNEY FAILURE TECHNIQUE: CT examination of the ABDOMEN without IV contrast CT examination of the PELVIS without IV contrast PRIORS: None. FINDINGS: Large body habitus limits the examination. Increased soft tissue attenuates the CT x-ray beam and degrades image quality. Linear scar versus atelectasis in both lung bases. Nonspecific soft tissue nodule in the right posterior medial pleura of the right lower lobe, series 3, image 6. Approximately 3.9 x 6.3 cm nonspecific lytic lesion in left acetabulum. Sagittal dimension is 9.1 cm. 1.8 x 2.4 cm nonspecific lytic lesion in the left anterior iliac crest. 2 cm lytic lesion in right acetabulum. Developmental variation with partially sacralized L5. Minimally formed L5-S1 disc. Nonspecific lytic lesions at L2 and L4. Lytic lesion medial right iliac wing. Cardiomegaly without pericardial effusion. Normal noncontrast appearance of the liver, contracted gallbladder, adrenals, pancreas, and spleen. Normal caliber abdominal aorta with slight calcified atherosclerotic plaque. Normal caliber IVC. A nonspecific, smoothly marginated, low density right renal lesion may be a cyst. Average density 11 and minimum density-76. Approximate size is 3.5 cm. Otherwise normal-appearing right kidney and visible right ureter 4 x 5 mm nonobstructing left renal lower pole calculus. Otherwise normal-appearing left kidney and ureter. Small fat containing umbilical hernia. Normal-appearing stomach, duodenum. No retroperitoneal adenopathy. No definite mesenteric mass. No small bowel distention in the abdomen and pelvis. No pelvic free fluid. Normal-appearing urinary bladder, prostate, seminal vesicles, and rectum. Severe sigmoid diverticulosis without evidence of diverticulitis. Moderate descending colon diverticulosis. No gross ascites, free air, or colonic distention. Normal-appearing cecum, terminal ileum, and appendix. IMPRESSION: Nonspecific multiple skeletal lytic lesions. This may be related to a systemic skeletal disorder but suspicion is raised of skeletal metastasis Soft tissue nodule in right lower lobe pleura posteromedially may be neoplastic Cardiomegaly Right renal lesion suggestive of a cyst Nonobstructing lower pole left renal calculus. No hydronephrosis or ureteral calculus Small fat containing umbilical hernia Severe sigmoid and moderate descending colon diverticulosis
[2017-10-09 01:28] LABS: Abnormal Protein Band 1 0.3 g/dL; Albumin 3.3 g/dL (3.8-4.8)
[2017-10-09 19:52] LABS: Myeloperoxidase Antibody <1.0 AI (<1.0)
[2017-10-10 23:08] LABS: ANA Screen, IFA Positive (Negative)
== END 2017-10-06 16:09 | disposition home or self-care (01) ==
LOC: CT 16:08
PROVIDERS: ATTEND Internal Medicine Nephrology
DX: N17.9 Acute kidney failure, unspecified (principal); I10 Essential (primary) hypertension; K42.9 Umbilical hernia without obstruction or gangrene; K57.30 Diverticulosis of large intestine without perforation or abscess without bleeding; N20.0 Calculus of kidney; I51.7 Cardiomegaly; R31.9 Hematuria, unspecified; R80.9 Proteinuria, unspecified; R91.1 Solitary pulmonary nodule; I70.0 Atherosclerosis of aorta; M89.9 Disorder of bone, unspecified
CPT/HCPCS: 36415; 74176; 80048; 80074; 81001; 82040; 82570; 84100; 84156; 84165; 85027; 86021; 86038; 86160

== ENCOUNTER 2017-10-07 11:05 | Outpatient (CLI) | payer BC | END 2017-10-07 11:06 | disposition home or self-care (01) | LOC: WOUND 11:05 | PROVIDERS: ATTEND Internal Medicine | DX: I82.502 Chronic embolism and thrombosis of unspecified deep veins of left lower extremity (principal); I87.2 Venous insufficiency (chronic) (peripheral); L97.822 Non-pressure chronic ulcer of other part of left lower leg with fat layer exposed; I10 Essential (primary) hypertension; Z86.718 Personal history of other venous thrombosis and embolism; Z87.891 Personal history of nicotine dependence; Z72.89 Other problems related to lifestyle | CPT/HCPCS: 29581 ==

== ENCOUNTER 2017-10-11 09:42 | Outpatient (CLI) | payer BC ==
[2017-10-11] MEDS ORDERED: XYLOCAINE TOPICAL 4% TP ONE (09:58)
== END 2017-10-11 09:43 | disposition home or self-care (01) ==
LOC: WOUND 09:42
PROVIDERS: ATTEND Surgery
DX: I87.2 Venous insufficiency (chronic) (peripheral) (principal); L97.822 Non-pressure chronic ulcer of other part of left lower leg with fat layer exposed; I82.592 Chronic embolism and thrombosis of other specified deep vein of left lower extremity; I10 Essential (primary) hypertension; J44.9 Chronic obstructive pulmonary disease, unspecified; Z87.891 Personal history of nicotine dependence; Z72.89 Other problems related to lifestyle

== ENCOUNTER 2017-10-14 09:12 | Outpatient (CLI) | payer BC, MEDICARE | END 2017-10-14 09:13 | disposition home or self-care (01) | LOC: WOUND 09:12 | PROVIDERS: ATTEND Podiatrist | DX: I87.2 Venous insufficiency (chronic) (peripheral) (principal); L97.822 Non-pressure chronic ulcer of other part of left lower leg with fat layer exposed; I10 Essential (primary) hypertension; Z86.718 Personal history of other venous thrombosis and embolism; Z87.891 Personal history of nicotine dependence; Z72.89 Other problems related to lifestyle | CPT/HCPCS: 29581 ==

== ENCOUNTER 2017-10-18 09:06 | Outpatient (CLI) | payer BC, MEDICARE ==
[2017-10-18] MEDS ORDERED: XYLOCAINE TOPICAL 4% TP ONE (09:54)
== END 2017-10-18 09:07 | disposition home or self-care (01) ==
LOC: WOUND 09:06
PROVIDERS: ATTEND Surgery
DX: I87.2 Venous insufficiency (chronic) (peripheral) (principal); L97.822 Non-pressure chronic ulcer of other part of left lower leg with fat layer exposed; I10 Essential (primary) hypertension; Z86.718 Personal history of other venous thrombosis and embolism; Z87.891 Personal history of nicotine dependence; Z72.89 Other problems related to lifestyle
CPT/HCPCS: 29581

== ENCOUNTER 2017-10-18 10:47 | Outpatient (CLI) | payer BC, MEDICARE ==
--- NOTE | 2017-10-19 08:29 | Cat Scan Report ---
CT CHEST WITHOUT CONTRAST INDICATION: Lung nodule. COMPARISON: 10/06/[address] FINDINGS: Noncontrast chest CT demonstrates stable, borderline cardiomegaly. Mild right coronary calcifications. No effusions. Patent central airway. Assessment of the great vessels and for detecting subtle lymphadenopathy limited due to lack of IV contrast. No size significant axillary lymphadenopathy though suspected. Asymmetric heterogeneous enlargement of left thyroid lobe, measuring 4.8 x 2.6 cm, axial image 8, series 2. Mild left lower lobe scarring again noted as also a 2.2 cm right lower lobe pleural-based nodule/mass posteromedially, axial image 85, series 2. A similar, though larger 5.6 x 2.8 cm left upper chest mass peripherally, arising from expansile involvement of the left second rib also noted as on axial image 27, amongst others. Slight left gynecomastia. Nonspecific distal esophageal wall prominence/thickening, not excluded for gastroesophageal reflux and/or hiatal hernia, amongst others. Though upper abdominal images limited due to motion artifact, approximately 2.5 cm right renal hypodense cyst may again be noted, axial image 138. Multilevel thoracic spine degenerative spurring. Few mid to lower thoracic spine lucencies bordering on subtle lytic lesions also suggested as measuring 8mm, axial image 111, series 2, involving T11. Subtle 2.5 x 0.7 cm lytic lesion involving the right third rib laterally also suspected as on axial image 38, series 2. CONCLUSION: 1. Right lower lobe peripheral/pleural based soft tissue nodule again seen. Another larger left upper rib lesion with associated soft tissue component also identified and may be amenable to sampling, if warranted. Few other subtle suspected rib and spinal lesions as well, as described above. Findings may again suggest an underlying etiology as multiple myeloma or metastases, amongst others. Please correlate. 2. Various other incidental findings, as above. Thank you for the opportunity to participate in this patient's care.
== END 2017-10-18 10:48 | disposition home or self-care (01) ==
LOC: CT 10:47
PROVIDERS: ATTEND Internal Medicine Hematology & Oncology
DX: R91.1 Solitary pulmonary nodule (principal); I25.10 Atherosclerotic heart disease of native coronary artery without angina pectoris; J98.4 Other disorders of lung; N62 Hypertrophy of breast; M53.84 Other specified dorsopathies, thoracic region; M89.9 Disorder of bone, unspecified; I12.9 Hypertensive chronic kidney disease with stage 1 through stage 4 chronic kidney disease, or unspecified chronic kidney disease; N18.4 Chronic kidney disease, stage 4 (severe); D63.1 Anemia in chronic kidney disease
CPT/HCPCS: 71250

== ENCOUNTER 2017-10-21 09:24 | Outpatient (CLI) | payer BC, MEDICARE | END 2017-10-21 09:25 | disposition home or self-care (01) | LOC: WOUND 09:24 | PROVIDERS: ATTEND Podiatrist | DX: I87.2 Venous insufficiency (chronic) (peripheral) (principal); L97.822 Non-pressure chronic ulcer of other part of left lower leg with fat layer exposed; I10 Essential (primary) hypertension; Z86.718 Personal history of other venous thrombosis and embolism; Z87.891 Personal history of nicotine dependence; Z72.89 Other problems related to lifestyle | CPT/HCPCS: 29581 ==

== ENCOUNTER 2017-10-25 09:24 | Outpatient (CLI) | payer BC, MEDICARE ==
[2017-10-25] MEDS ORDERED: XYLOCAINE TOPICAL 4% TP ONE ×2 (09:36→09:41)
== END 2017-10-25 09:25 | disposition home or self-care (01) ==
LOC: WOUND 09:24
PROVIDERS: ATTEND Surgery
DX: I87.2 Venous insufficiency (chronic) (peripheral) (principal); L97.822 Non-pressure chronic ulcer of other part of left lower leg with fat layer exposed; I10 Essential (primary) hypertension; Z86.718 Personal history of other venous thrombosis and embolism; Z87.891 Personal history of nicotine dependence; Z72.89 Other problems related to lifestyle
CPT/HCPCS: 29581

== ENCOUNTER 2017-10-28 09:22 | Outpatient (CLI) | payer BC, MEDICARE | END 2017-10-28 09:23 | disposition home or self-care (01) | LOC: WOUND 09:22 | PROVIDERS: ATTEND Podiatrist | DX: L97.822 Non-pressure chronic ulcer of other part of left lower leg with fat layer exposed (principal); I87.2 Venous insufficiency (chronic) (peripheral); I10 Essential (primary) hypertension; Z86.718 Personal history of other venous thrombosis and embolism; Z87.891 Personal history of nicotine dependence; Z72.89 Other problems related to lifestyle | CPT/HCPCS: 29581 ==

== ENCOUNTER 2017-11-01 09:33 | Outpatient (CLI) | payer BC, MEDICARE ==
[2017-11-01] MEDS ORDERED: XYLOCAINE TOPICAL 4% TP ONE ×2 (09:48→09:56)
== END 2017-11-01 09:34 | disposition home or self-care (01) ==
LOC: WOUND 09:33
PROVIDERS: ATTEND Surgery
DX: I87.2 Venous insufficiency (chronic) (peripheral) (principal); L97.822 Non-pressure chronic ulcer of other part of left lower leg with fat layer exposed; I10 Essential (primary) hypertension; Z86.718 Personal history of other venous thrombosis and embolism; Z87.891 Personal history of nicotine dependence; Z72.89 Other problems related to lifestyle

== ENCOUNTER 2017-11-04 09:30 | Outpatient (CLI) | payer BC, MEDICARE | END 2017-11-04 09:31 | disposition home or self-care (01) | LOC: WOUND 09:30 | PROVIDERS: ATTEND Podiatrist | DX: L97.822 Non-pressure chronic ulcer of other part of left lower leg with fat layer exposed (principal); I87.2 Venous insufficiency (chronic) (peripheral); I10 Essential (primary) hypertension; Z86.718 Personal history of other venous thrombosis and embolism; Z87.891 Personal history of nicotine dependence; Z72.89 Other problems related to lifestyle | CPT/HCPCS: 29581 ==

== ENCOUNTER 2017-11-07 10:48 | Outpatient (CLI) | payer BC, MEDICARE ==
--- NOTE | 2017-11-08 07:57 | XRay Report ---
FINAL REPORT EXAM: XR BONE SURVEY METASTATIC HISTORY: MULTIPLE MYELOMA TECHNIQUE: A total of 18 images were obtained of the axial and appendicular skeleton. FINDINGS: There is an ovoid 2.1 cm lytic lesion in the posterior aspect of the skull. There are small lytic lesions involving L2 and L4. In the pelvis there are lytic lesions involving the left acetabulum. An additional lytic lesion is seen along the left iliac crest. There are multiple small lytic foci involving both proximal femora as well as the proximal humeral shaft. The bony structures otherwise reveal an expansile bone lesion involving the left 2nd rib. This may be related to incidental fibrous dysplasia. The skeletal structures otherwise reveal extensive arthritic changes throughout the spine and involving the knees and hips bilaterally. IMPRESSION: Osteolytic lesions involving the posterior skull, bilateral humeri and proximal femora as well as the pelvis and lumbar spine compatible history of multiple myeloma. 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
== END 2017-11-07 10:49 | disposition home or self-care (01) ==
LOC: XRAY 10:48
PROVIDERS: ATTEND Internal Medicine Hematology & Oncology
DX: C90.00 Multiple myeloma not having achieved remission (principal); M17.0 Bilateral primary osteoarthritis of knee; M16.0 Bilateral primary osteoarthritis of hip; M89.9 Disorder of bone, unspecified; M47.899 Other spondylosis, site unspecified; I12.9 Hypertensive chronic kidney disease with stage 1 through stage 4 chronic kidney disease, or unspecified chronic kidney disease; N18.4 Chronic kidney disease, stage 4 (severe); D63.1 Anemia in chronic kidney disease; Z79.899 Other long term (current) drug therapy; Z87.891 Personal history of nicotine dependence
CPT/HCPCS: 77074

== ENCOUNTER 2017-11-08 12:54 | Outpatient (CLI) | payer BC, MEDICARE ==
[2017-11-08] MEDS ORDERED: XYLOCAINE TOPICAL 4% TP ONE (13:15)
== END 2017-11-08 12:55 | disposition home or self-care (01) ==
LOC: WOUND 12:54
PROVIDERS: ATTEND Surgery
DX: L97.822 Non-pressure chronic ulcer of other part of left lower leg with fat layer exposed (principal); I87.2 Venous insufficiency (chronic) (peripheral); I10 Essential (primary) hypertension; Z86.718 Personal history of other venous thrombosis and embolism; Z87.891 Personal history of nicotine dependence; Z72.89 Other problems related to lifestyle

== ENCOUNTER 2017-11-15 09:48 | Outpatient (CLI) | payer BC, MEDICARE ==
[2017-11-15] MEDS ORDERED: XYLOCAINE TOPICAL 4% TP ONE (10:05)
== END 2017-11-15 09:49 | disposition home or self-care (01) ==
LOC: WOUND 09:48
PROVIDERS: ATTEND Surgery
DX: L97.822 Non-pressure chronic ulcer of other part of left lower leg with fat layer exposed (principal); I87.2 Venous insufficiency (chronic) (peripheral); I10 Essential (primary) hypertension; Z86.718 Personal history of other venous thrombosis and embolism; Z87.891 Personal history of nicotine dependence

== ENCOUNTER 2017-11-22 09:49 | Outpatient (CLI) | payer BC, MEDICARE | END 2017-11-22 09:50 | disposition home or self-care (01) | LOC: WOUND 09:49 | PROVIDERS: ATTEND Surgery | DX: L97.822 Non-pressure chronic ulcer of other part of left lower leg with fat layer exposed (principal); I87.2 Venous insufficiency (chronic) (peripheral); I10 Essential (primary) hypertension; Z86.718 Personal history of other venous thrombosis and embolism; Z87.891 Personal history of nicotine dependence ==

== ENCOUNTER 2017-11-29 09:41 | Outpatient (CLI) | payer BC, MEDICARE ==
[2017-11-29] MEDS ORDERED: XYLOCAINE TOPICAL 2% 5ML ONE (09:50)
[2017-11-29] MEDS ORDERED: XYLOCAINE TOPICAL 2% 5ML TP ONE (09:57)
== END 2017-11-29 09:42 | disposition home or self-care (01) ==
LOC: WOUND 09:41
PROVIDERS: ATTEND Surgery
DX: L97.822 Non-pressure chronic ulcer of other part of left lower leg with fat layer exposed (principal); I87.2 Venous insufficiency (chronic) (peripheral); I10 Essential (primary) hypertension; Z86.718 Personal history of other venous thrombosis and embolism; Z87.891 Personal history of nicotine dependence

== ENCOUNTER 2017-12-06 09:52 | Outpatient (CLI) | payer BC, MEDICARE ==
[2017-12-06] MEDS ORDERED: XYLOCAINE TOPICAL 4% TP ONE ×2 (10:39→10:40)
== END 2017-12-06 09:53 | disposition home or self-care (01) ==
LOC: WOUND 09:52
PROVIDERS: ATTEND Surgery
DX: L97.822 Non-pressure chronic ulcer of other part of left lower leg with fat layer exposed (principal); I87.2 Venous insufficiency (chronic) (peripheral); I10 Essential (primary) hypertension; Z86.718 Personal history of other venous thrombosis and embolism; Z87.891 Personal history of nicotine dependence

== ENCOUNTER 2017-12-13 09:45 | Outpatient (CLI) | payer BC, MEDICARE ==
[2017-12-13] MEDS ORDERED: XYLOCAINE TOPICAL 4% TP ONE ×2 (10:18→11:26)
== END 2017-12-13 09:46 | disposition home or self-care (01) ==
LOC: WOUND 09:45
PROVIDERS: ATTEND Surgery
DX: L97.822 Non-pressure chronic ulcer of other part of left lower leg with fat layer exposed (principal); L97.811 Non-pressure chronic ulcer of other part of right lower leg limited to breakdown of skin; I87.2 Venous insufficiency (chronic) (peripheral); I10 Essential (primary) hypertension; Z86.718 Personal history of other venous thrombosis and embolism; Z87.891 Personal history of nicotine dependence

== ENCOUNTER 2017-12-20 09:24 | Outpatient (CLI) | payer BC, MEDICARE ==
[2017-12-20] MEDS ORDERED: XYLOCAINE TOPICAL 4% TP ONE (09:39)
== END 2017-12-20 09:25 | disposition home or self-care (01) ==
LOC: WOUND 09:24
PROVIDERS: ATTEND Surgery
DX: L97.822 Non-pressure chronic ulcer of other part of left lower leg with fat layer exposed (principal); L97.811 Non-pressure chronic ulcer of other part of right lower leg limited to breakdown of skin; I10 Essential (primary) hypertension; Z86.718 Personal history of other venous thrombosis and embolism; Z87.891 Personal history of nicotine dependence

== ENCOUNTER 2017-12-27 09:46 | Outpatient (CLI) | payer BC ==
[2017-12-27] MEDS ORDERED: XYLOCAINE TOPICAL 4% TP ONE (11:01)
== END 2017-12-27 09:47 | disposition home or self-care (01) ==
LOC: WOUND 09:46
PROVIDERS: ATTEND Surgery
DX: L97.822 Non-pressure chronic ulcer of other part of left lower leg with fat layer exposed (principal); L97.811 Non-pressure chronic ulcer of other part of right lower leg limited to breakdown of skin; I87.2 Venous insufficiency (chronic) (peripheral); I10 Essential (primary) hypertension; Z86.718 Personal history of other venous thrombosis and embolism; Z87.891 Personal history of nicotine dependence

== ENCOUNTER 2018-01-03 09:54 | Outpatient (CLI) | payer BC ==
[2018-01-03] MEDS ORDERED: XYLOCAINE TOPICAL 4% TP ONE (11:01)
== END 2018-01-03 09:55 | disposition home or self-care (01) ==
LOC: WOUND 09:54
PROVIDERS: ATTEND Surgery
DX: L97.822 Non-pressure chronic ulcer of other part of left lower leg with fat layer exposed (principal); L97.811 Non-pressure chronic ulcer of other part of right lower leg limited to breakdown of skin; I10 Essential (primary) hypertension; Z86.718 Personal history of other venous thrombosis and embolism; Z87.891 Personal history of nicotine dependence

== ENCOUNTER 2018-01-10 09:44 | Outpatient (CLI) | payer BC ==
[2018-01-10] MEDS ORDERED: XYLOCAINE TOPICAL 4% TP ONE (10:24)
== END 2018-01-10 09:45 | disposition home or self-care (01) ==
LOC: WOUND 09:44
PROVIDERS: ATTEND Surgery
DX: L97.822 Non-pressure chronic ulcer of other part of left lower leg with fat layer exposed (principal); I10 Essential (primary) hypertension; Z86.718 Personal history of other venous thrombosis and embolism; Z87.891 Personal history of nicotine dependence

== ENCOUNTER 2018-01-17 09:54 | Outpatient (CLI) | payer BC ==
[2018-01-17] MEDS ORDERED: XYLOCAINE TOPICAL 4% TP ONE ×2 (10:24→10:29)
== END 2018-01-17 09:55 | disposition home or self-care (01) ==
LOC: WOUND 09:54
PROVIDERS: ATTEND Surgery
DX: L97.822 Non-pressure chronic ulcer of other part of left lower leg with fat layer exposed (principal); L97.811 Non-pressure chronic ulcer of other part of right lower leg limited to breakdown of skin; I10 Essential (primary) hypertension; Z86.718 Personal history of other venous thrombosis and embolism; Z87.891 Personal history of nicotine dependence

== ENCOUNTER 2018-01-24 09:58 | Outpatient (CLI) | payer BC ==
[2018-01-24] MEDS ORDERED: XYLOCAINE TOPICAL 4% TP ONE ×2 (10:49→10:50)
== END 2018-01-24 09:59 | disposition home or self-care (01) ==
LOC: WOUND 09:58
PROVIDERS: ATTEND Surgery
DX: L97.822 Non-pressure chronic ulcer of other part of left lower leg with fat layer exposed (principal); L97.811 Non-pressure chronic ulcer of other part of right lower leg limited to breakdown of skin; I87.2 Venous insufficiency (chronic) (peripheral); I10 Essential (primary) hypertension; Z87.891 Personal history of nicotine dependence; Z86.718 Personal history of other venous thrombosis and embolism
CPT/HCPCS: 29581

== ENCOUNTER 2018-01-27 11:07 | Outpatient (CLI) | payer BC | END 2018-01-27 11:08 | disposition home or self-care (01) | LOC: WOUND 11:07 | PROVIDERS: ATTEND Surgery | DX: L97.822 Non-pressure chronic ulcer of other part of left lower leg with fat layer exposed (principal); L97.811 Non-pressure chronic ulcer of other part of right lower leg limited to breakdown of skin; I10 Essential (primary) hypertension; Z86.718 Personal history of other venous thrombosis and embolism; Z87.891 Personal history of nicotine dependence | CPT/HCPCS: 29581 ==

== ENCOUNTER 2018-01-31 10:05 | Outpatient (CLI) | payer BC ==
[2018-01-31] MEDS ORDERED: XYLOCAINE TOPICAL 4% TP ONE ×2 (10:23→10:38)
== END 2018-01-31 10:06 | disposition home or self-care (01) ==
LOC: WOUND 10:05
PROVIDERS: ATTEND Surgery
DX: L97.822 Non-pressure chronic ulcer of other part of left lower leg with fat layer exposed (principal); L97.811 Non-pressure chronic ulcer of other part of right lower leg limited to breakdown of skin; I87.2 Venous insufficiency (chronic) (peripheral); I10 Essential (primary) hypertension; Z86.718 Personal history of other venous thrombosis and embolism; Z87.891 Personal history of nicotine dependence
CPT/HCPCS: 29581

== ENCOUNTER 2018-02-03 11:22 | Outpatient (CLI) | payer BC ==
[2018-02-03] MEDS ORDERED: XYLOCAINE TOPICAL 4% TP ONE ×2 (12:23)
== END 2018-02-03 11:23 | disposition home or self-care (01) ==
LOC: WOUND 11:22
PROVIDERS: ATTEND Surgery
DX: L97.822 Non-pressure chronic ulcer of other part of left lower leg with fat layer exposed (principal); I10 Essential (primary) hypertension; Z86.718 Personal history of other venous thrombosis and embolism; Z87.891 Personal history of nicotine dependence

== ENCOUNTER 2018-02-07 09:32 | Outpatient (CLI) | payer BC ==
[2018-02-07] MEDS ORDERED: XYLOCAINE TOPICAL 4% TP ONE (10:24)
== END 2018-02-07 09:33 | disposition home or self-care (01) ==
LOC: WOUND 09:32
PROVIDERS: ATTEND Surgery
DX: L97.822 Non-pressure chronic ulcer of other part of left lower leg with fat layer exposed (principal); I10 Essential (primary) hypertension; Z86.718 Personal history of other venous thrombosis and embolism; Z87.891 Personal history of nicotine dependence
CPT/HCPCS: 29581

== ENCOUNTER 2018-02-10 11:42 | Outpatient (CLI) | payer BC | END 2018-02-10 11:43 | disposition home or self-care (01) | LOC: WOUND 11:42 | PROVIDERS: ATTEND Surgery | DX: L97.822 Non-pressure chronic ulcer of other part of left lower leg with fat layer exposed (principal); L97.811 Non-pressure chronic ulcer of other part of right lower leg limited to breakdown of skin; I87.2 Venous insufficiency (chronic) (peripheral); I10 Essential (primary) hypertension; Z86.718 Personal history of other venous thrombosis and embolism; Z87.891 Personal history of nicotine dependence | CPT/HCPCS: 29581 ==

== ENCOUNTER 2018-02-14 09:39 | Outpatient (CLI) | payer BC ==
[2018-02-14] MEDS ORDERED: XYLOCAINE TOPICAL 4% TP ONE ×2 (10:15→12:00)
== END 2018-02-14 09:40 | disposition home or self-care (01) ==
LOC: WOUND 09:39
PROVIDERS: ATTEND Surgery
DX: L97.822 Non-pressure chronic ulcer of other part of left lower leg with fat layer exposed (principal); L97.811 Non-pressure chronic ulcer of other part of right lower leg limited to breakdown of skin; I10 Essential (primary) hypertension; Z86.718 Personal history of other venous thrombosis and embolism; Z87.891 Personal history of nicotine dependence
CPT/HCPCS: 29581

== ENCOUNTER 2018-02-17 11:21 | Outpatient (CLI) | payer BC | END 2018-02-17 11:22 | disposition home or self-care (01) | LOC: WOUND 11:21 | PROVIDERS: ATTEND Surgery | DX: L97.822 Non-pressure chronic ulcer of other part of left lower leg with fat layer exposed (principal); L97.811 Non-pressure chronic ulcer of other part of right lower leg limited to breakdown of skin; I10 Essential (primary) hypertension; Z86.718 Personal history of other venous thrombosis and embolism; Z87.891 Personal history of nicotine dependence | CPT/HCPCS: 29581; G0463; 99213 ==

== ENCOUNTER 2018-02-21 09:51 | Outpatient (CLI) | payer BC ==
[2018-02-21] MEDS ORDERED: XYLOCAINE TOPICAL 4% TP ONE (10:03)
== END 2018-02-21 09:52 | disposition home or self-care (01) ==
LOC: WOUND 09:51
PROVIDERS: ATTEND Surgery
DX: L97.822 Non-pressure chronic ulcer of other part of left lower leg with fat layer exposed (principal); L97.811 Non-pressure chronic ulcer of other part of right lower leg limited to breakdown of skin; I10 Essential (primary) hypertension; I87.2 Venous insufficiency (chronic) (peripheral); Z86.718 Personal history of other venous thrombosis and embolism; Z87.891 Personal history of nicotine dependence
CPT/HCPCS: 29581

== ENCOUNTER 2018-02-24 13:23 | Outpatient (CLI) | payer BC | END 2018-02-24 13:24 | disposition home or self-care (01) | LOC: WOUND 13:23 | PROVIDERS: ATTEND Surgery | DX: L97.822 Non-pressure chronic ulcer of other part of left lower leg with fat layer exposed (principal); L97.811 Non-pressure chronic ulcer of other part of right lower leg limited to breakdown of skin; I87.2 Venous insufficiency (chronic) (peripheral); I10 Essential (primary) hypertension; Z86.718 Personal history of other venous thrombosis and embolism; Z87.891 Personal history of nicotine dependence | CPT/HCPCS: 29581 ==

== ENCOUNTER 2018-02-28 09:51 | Outpatient (CLI) | payer BC ==
[2018-02-28] MEDS ORDERED: XYLOCAINE TOPICAL 4% TP ONE ×2 (10:09→11:00)
== END 2018-02-28 09:52 | disposition home or self-care (01) ==
LOC: WOUND 09:51
PROVIDERS: ATTEND Surgery
DX: L97.822 Non-pressure chronic ulcer of other part of left lower leg with fat layer exposed (principal); L97.811 Non-pressure chronic ulcer of other part of right lower leg limited to breakdown of skin; I87.2 Venous insufficiency (chronic) (peripheral); Z86.718 Personal history of other venous thrombosis and embolism; Z87.891 Personal history of nicotine dependence
CPT/HCPCS: 29581

== ENCOUNTER 2018-03-03 13:24 | Outpatient (CLI) | payer BC | END 2018-03-03 13:25 | disposition home or self-care (01) | LOC: WOUND 13:24 | PROVIDERS: ATTEND Surgery | DX: L97.822 Non-pressure chronic ulcer of other part of left lower leg with fat layer exposed (principal); L97.811 Non-pressure chronic ulcer of other part of right lower leg limited to breakdown of skin; I87.2 Venous insufficiency (chronic) (peripheral); Z86.718 Personal history of other venous thrombosis and embolism; Z87.891 Personal history of nicotine dependence | CPT/HCPCS: 29581 ==

== ENCOUNTER 2018-03-06 09:49 | Outpatient (CLI) | payer BC ==
[2018-03-06] MEDS ORDERED: XYLOCAINE TOPICAL 4% TP ONE ×2 (10:11→12:00)
== END 2018-03-06 09:50 | disposition home or self-care (01) ==
LOC: WOUND 09:49
PROVIDERS: ATTEND Surgery
DX: L97.822 Non-pressure chronic ulcer of other part of left lower leg with fat layer exposed (principal); L97.811 Non-pressure chronic ulcer of other part of right lower leg limited to breakdown of skin; I87.2 Venous insufficiency (chronic) (peripheral); Z86.718 Personal history of other venous thrombosis and embolism; Z87.891 Personal history of nicotine dependence
CPT/HCPCS: 29581

== ENCOUNTER 2018-03-10 13:15 | Outpatient (CLI) | payer BC | END 2018-03-10 13:16 | disposition home or self-care (01) | LOC: WOUND 13:15 | PROVIDERS: ATTEND Surgery | DX: L97.822 Non-pressure chronic ulcer of other part of left lower leg with fat layer exposed (principal); I87.2 Venous insufficiency (chronic) (peripheral); I10 Essential (primary) hypertension; Z86.718 Personal history of other venous thrombosis and embolism; Z87.891 Personal history of nicotine dependence | CPT/HCPCS: 29581 ==

== ENCOUNTER 2018-03-14 10:17 | Outpatient (CLI) | payer BC ==
[2018-03-14] MEDS ORDERED: XYLOCAINE TOPICAL 4% TP ONE (10:48)
== END 2018-03-14 10:18 | disposition home or self-care (01) ==
LOC: WOUND 10:17
PROVIDERS: ATTEND Surgery
DX: L97.822 Non-pressure chronic ulcer of other part of left lower leg with fat layer exposed (principal); L97.811 Non-pressure chronic ulcer of other part of right lower leg limited to breakdown of skin; I87.2 Venous insufficiency (chronic) (peripheral); I10 Essential (primary) hypertension; Z86.718 Personal history of other venous thrombosis and embolism; Z87.891 Personal history of nicotine dependence
CPT/HCPCS: 29580

== ENCOUNTER 2018-03-17 13:29 | Outpatient (CLI) | payer BC | END 2018-03-17 13:30 | disposition home or self-care (01) | LOC: WOUND 13:29 | PROVIDERS: ATTEND Surgery | DX: L97.822 Non-pressure chronic ulcer of other part of left lower leg with fat layer exposed (principal); L97.811 Non-pressure chronic ulcer of other part of right lower leg limited to breakdown of skin; I87.2 Venous insufficiency (chronic) (peripheral); I10 Essential (primary) hypertension; Z86.718 Personal history of other venous thrombosis and embolism; Z87.891 Personal history of nicotine dependence | CPT/HCPCS: 29580 ==

== ENCOUNTER 2018-03-21 09:50 | Outpatient (CLI) | payer BC ==
[2018-03-21] MEDS ORDERED: XYLOCAINE TOPICAL 4% TP ONE (10:11)
== END 2018-03-21 09:51 | disposition home or self-care (01) ==
LOC: WOUND 09:50
PROVIDERS: ATTEND Surgery
DX: L97.822 Non-pressure chronic ulcer of other part of left lower leg with fat layer exposed (principal); L97.811 Non-pressure chronic ulcer of other part of right lower leg limited to breakdown of skin; I87.2 Venous insufficiency (chronic) (peripheral); I10 Essential (primary) hypertension; Z86.718 Personal history of other venous thrombosis and embolism; Z87.891 Personal history of nicotine dependence; Z68.42 Body mass index [BMI] 45.0-49.9, adult
CPT/HCPCS: 29580

== ENCOUNTER 2018-03-24 13:12 | Outpatient (CLI) | payer BC | END 2018-03-24 13:13 | disposition home or self-care (01) | LOC: WOUND 13:12 | PROVIDERS: ATTEND Surgery | DX: L97.822 Non-pressure chronic ulcer of other part of left lower leg with fat layer exposed (principal); L97.811 Non-pressure chronic ulcer of other part of right lower leg limited to breakdown of skin; I87.2 Venous insufficiency (chronic) (peripheral); I10 Essential (primary) hypertension; Z86.718 Personal history of other venous thrombosis and embolism; Z87.891 Personal history of nicotine dependence; Z68.42 Body mass index [BMI] 45.0-49.9, adult | CPT/HCPCS: 29580 ==

== ENCOUNTER 2018-03-28 09:21 | Outpatient (CLI) | payer BC ==
[2018-03-28] MEDS ORDERED: XYLOCAINE TOPICAL 4% TP ONE (13:57)
== END 2018-03-28 09:22 | disposition home or self-care (01) ==
LOC: WOUND 09:21
PROVIDERS: ATTEND Surgery
DX: L97.822 Non-pressure chronic ulcer of other part of left lower leg with fat layer exposed (principal); L97.811 Non-pressure chronic ulcer of other part of right lower leg limited to breakdown of skin; I87.2 Venous insufficiency (chronic) (peripheral); I10 Essential (primary) hypertension; Z86.718 Personal history of other venous thrombosis and embolism; Z87.891 Personal history of nicotine dependence; Z68.42 Body mass index [BMI] 45.0-49.9, adult
CPT/HCPCS: 29580

== ENCOUNTER 2018-03-31 11:26 | Outpatient (CLI) | payer BC | END 2018-03-31 11:27 | disposition home or self-care (01) | LOC: WOUND 11:26 | PROVIDERS: ATTEND Surgery | DX: L97.822 Non-pressure chronic ulcer of other part of left lower leg with fat layer exposed (principal); L97.811 Non-pressure chronic ulcer of other part of right lower leg limited to breakdown of skin; I87.2 Venous insufficiency (chronic) (peripheral); I10 Essential (primary) hypertension; Z86.718 Personal history of other venous thrombosis and embolism; Z87.891 Personal history of nicotine dependence; Z68.42 Body mass index [BMI] 45.0-49.9, adult | CPT/HCPCS: 29581 ==

== ENCOUNTER 2018-04-04 09:44 | Outpatient (CLI) | payer BC ==
[2018-04-04] MEDS ORDERED: XYLOCAINE TOPICAL 4% TP ONE (09:59)
== END 2018-04-04 09:45 | disposition home or self-care (01) ==
LOC: WOUND 09:44
PROVIDERS: ATTEND Surgery
DX: L97.822 Non-pressure chronic ulcer of other part of left lower leg with fat layer exposed (principal); L97.811 Non-pressure chronic ulcer of other part of right lower leg limited to breakdown of skin; I87.2 Venous insufficiency (chronic) (peripheral); I10 Essential (primary) hypertension; Z86.718 Personal history of other venous thrombosis and embolism; Z87.891 Personal history of nicotine dependence; Z68.42 Body mass index [BMI] 45.0-49.9, adult
CPT/HCPCS: 29581

== ENCOUNTER 2018-04-07 12:56 | Outpatient (CLI) | payer BC | END 2018-04-07 12:57 | disposition home or self-care (01) | LOC: WOUND 12:56 | PROVIDERS: ATTEND Surgery | DX: L97.822 Non-pressure chronic ulcer of other part of left lower leg with fat layer exposed (principal); L97.811 Non-pressure chronic ulcer of other part of right lower leg limited to breakdown of skin; I87.2 Venous insufficiency (chronic) (peripheral); I10 Essential (primary) hypertension; Z86.718 Personal history of other venous thrombosis and embolism; Z87.891 Personal history of nicotine dependence; Z68.42 Body mass index [BMI] 45.0-49.9, adult | CPT/HCPCS: 29581 ==

== ENCOUNTER 2018-04-11 09:55 | Outpatient (CLI) | payer BC ==
[2018-04-11] MEDS ORDERED: XYLOCAINE TOPICAL 4% TP ONE (10:18)
== END 2018-04-11 09:56 | disposition home or self-care (01) ==
LOC: WOUND 09:55
PROVIDERS: ATTEND Surgery
DX: L97.822 Non-pressure chronic ulcer of other part of left lower leg with fat layer exposed (principal); L97.811 Non-pressure chronic ulcer of other part of right lower leg limited to breakdown of skin; I87.2 Venous insufficiency (chronic) (peripheral); I10 Essential (primary) hypertension; Z86.718 Personal history of other venous thrombosis and embolism; Z87.891 Personal history of nicotine dependence; Z68.42 Body mass index [BMI] 45.0-49.9, adult
CPT/HCPCS: 29581

== ENCOUNTER 2018-04-14 11:39 | Outpatient (CLI) | payer BC | END 2018-04-14 11:40 | disposition home or self-care (01) | LOC: WOUND 11:39 | PROVIDERS: ATTEND Surgery | DX: L97.822 Non-pressure chronic ulcer of other part of left lower leg with fat layer exposed (principal); L97.811 Non-pressure chronic ulcer of other part of right lower leg limited to breakdown of skin; I87.2 Venous insufficiency (chronic) (peripheral); I10 Essential (primary) hypertension; Z86.718 Personal history of other venous thrombosis and embolism; Z87.891 Personal history of nicotine dependence; Z68.42 Body mass index [BMI] 45.0-49.9, adult | CPT/HCPCS: 29581 ==

== ENCOUNTER → 2018-04-18 | Outpatient (CLI) | payer BC | END | disposition home or self-care (01) | LOC: WOUND 10:03 | PROVIDERS: ATTEND Surgery | DX: L97.822 Non-pressure chronic ulcer of other part of left lower leg with fat layer exposed (principal); L97.811 Non-pressure chronic ulcer of other part of right lower leg limited to breakdown of skin; I87.2 Venous insufficiency (chronic) (peripheral); I10 Essential (primary) hypertension; Z86.718 Personal history of other venous thrombosis and embolism; Z87.891 Personal history of nicotine dependence; Z68.42 Body mass index [BMI] 45.0-49.9, adult | CPT/HCPCS: 29581 ==

== ENCOUNTER 2018-04-21 11:24 | Outpatient (CLI) | payer BC | END 2018-04-21 11:25 | disposition home or self-care (01) | LOC: WOUND 11:24 | PROVIDERS: ATTEND Surgery | DX: L97.822 Non-pressure chronic ulcer of other part of left lower leg with fat layer exposed (principal); L97.811 Non-pressure chronic ulcer of other part of right lower leg limited to breakdown of skin; I87.2 Venous insufficiency (chronic) (peripheral); I10 Essential (primary) hypertension; Z86.718 Personal history of other venous thrombosis and embolism; Z87.891 Personal history of nicotine dependence | CPT/HCPCS: 29581 ==

== ENCOUNTER 2018-04-25 10:11 | Outpatient (CLI) | payer BC ==
[2018-04-25] MEDS ORDERED: XYLOCAINE TOPICAL 4% TP ONE ×2 (10:23→11:43)
[2018-04-25] MEDS ORDERED: AD OINTMENT TP ONE (10:57)
[2018-04-25] MEDS ORDERED: AD OINTMENT TP PRN (11:43)
== END 2018-04-25 10:12 | disposition home or self-care (01) ==
LOC: WOUND 10:11
PROVIDERS: ATTEND Surgery
DX: L97.822 Non-pressure chronic ulcer of other part of left lower leg with fat layer exposed (principal); L97.811 Non-pressure chronic ulcer of other part of right lower leg limited to breakdown of skin; I87.2 Venous insufficiency (chronic) (peripheral); I10 Essential (primary) hypertension; Z86.718 Personal history of other venous thrombosis and embolism; Z87.891 Personal history of nicotine dependence
CPT/HCPCS: A6250

== ENCOUNTER 2018-05-02 09:43 | Outpatient (CLI) | payer BC ==
[2018-05-02] MEDS ORDERED: XYLOCAINE TOPICAL 4% TP ONE ×2 (10:06→12:27)
== END 2018-05-02 09:44 | disposition home or self-care (01) ==
LOC: WOUND 09:43
PROVIDERS: ATTEND Surgery
DX: L97.822 Non-pressure chronic ulcer of other part of left lower leg with fat layer exposed (principal); L97.811 Non-pressure chronic ulcer of other part of right lower leg limited to breakdown of skin; I87.2 Venous insufficiency (chronic) (peripheral); I10 Essential (primary) hypertension; Z86.718 Personal history of other venous thrombosis and embolism; Z87.891 Personal history of nicotine dependence

== ENCOUNTER 2018-05-05 12:43 | Outpatient (CLI) | payer BC | END 2018-05-05 12:44 | disposition home or self-care (01) | LOC: WOUND 12:43 | PROVIDERS: ATTEND Surgery | DX: L97.822 Non-pressure chronic ulcer of other part of left lower leg with fat layer exposed (principal); L97.811 Non-pressure chronic ulcer of other part of right lower leg limited to breakdown of skin; I87.2 Venous insufficiency (chronic) (peripheral); I10 Essential (primary) hypertension; Z86.718 Personal history of other venous thrombosis and embolism; Z87.891 Personal history of nicotine dependence ==

== ENCOUNTER 2018-05-09 09:33 | Outpatient (CLI) | payer BC ==
[2018-05-09] MEDS ORDERED: XYLOCAINE TOPICAL 4% TP ONE ×2 (10:04→14:00)
== END 2018-05-09 09:34 | disposition home or self-care (01) ==
LOC: WOUND 09:33
PROVIDERS: ATTEND Surgery
DX: L97.822 Non-pressure chronic ulcer of other part of left lower leg with fat layer exposed (principal); L97.811 Non-pressure chronic ulcer of other part of right lower leg limited to breakdown of skin; I87.2 Venous insufficiency (chronic) (peripheral); I10 Essential (primary) hypertension; Z86.718 Personal history of other venous thrombosis and embolism; Z87.891 Personal history of nicotine dependence
CPT/HCPCS: 29581

== ENCOUNTER 2018-05-16 09:27 | Outpatient (CLI) | payer BC ==
[2018-05-16] MEDS ORDERED: XYLOCAINE TOPICAL 4% TP ONE ×2 (10:04→10:07)
== END 2018-05-16 09:28 | disposition home or self-care (01) ==
LOC: WOUND 09:27
PROVIDERS: ATTEND Surgery
DX: L97.822 Non-pressure chronic ulcer of other part of left lower leg with fat layer exposed (principal); L97.811 Non-pressure chronic ulcer of other part of right lower leg limited to breakdown of skin; I87.2 Venous insufficiency (chronic) (peripheral); I10 Essential (primary) hypertension; Z86.718 Personal history of other venous thrombosis and embolism; Z87.891 Personal history of nicotine dependence

== ENCOUNTER 2018-05-19 13:01 | Outpatient (CLI) | payer BC ==
[2018-05-19] MEDS ORDERED: AD OINTMENT TP ONE (13:13)
[2018-05-19] MEDS ORDERED: AD OINTMENT TP PRN (15:16)
== END 2018-05-19 13:02 | disposition home or self-care (01) ==
LOC: WOUND 13:01
PROVIDERS: ATTEND Surgery
DX: L97.822 Non-pressure chronic ulcer of other part of left lower leg with fat layer exposed (principal); L97.811 Non-pressure chronic ulcer of other part of right lower leg limited to breakdown of skin; I87.2 Venous insufficiency (chronic) (peripheral); I10 Essential (primary) hypertension; Z86.718 Personal history of other venous thrombosis and embolism; Z87.891 Personal history of nicotine dependence
CPT/HCPCS: A6250

== ENCOUNTER 2018-05-23 09:34 | Outpatient (CLI) | payer BC ==
[2018-05-23] MEDS ORDERED: XYLOCAINE TOPICAL 4% TP ONE (09:40)
== END 2018-05-23 09:35 | disposition home or self-care (01) ==
LOC: WOUND 09:34
PROVIDERS: ATTEND Surgery
DX: L97.822 Non-pressure chronic ulcer of other part of left lower leg with fat layer exposed (principal); L97.811 Non-pressure chronic ulcer of other part of right lower leg limited to breakdown of skin; I87.2 Venous insufficiency (chronic) (peripheral); I10 Essential (primary) hypertension; Z86.718 Personal history of other venous thrombosis and embolism; Z87.891 Personal history of nicotine dependence
CPT/HCPCS: 29581

== ENCOUNTER 2018-05-26 13:19 | Outpatient (CLI) | payer BC | END 2018-05-26 13:20 | disposition home or self-care (01) | LOC: WOUND 13:19 | PROVIDERS: ATTEND Surgery | DX: L97.822 Non-pressure chronic ulcer of other part of left lower leg with fat layer exposed (principal); L97.811 Non-pressure chronic ulcer of other part of right lower leg limited to breakdown of skin; I87.2 Venous insufficiency (chronic) (peripheral); I10 Essential (primary) hypertension; Z86.718 Personal history of other venous thrombosis and embolism; Z87.891 Personal history of nicotine dependence ==

== ENCOUNTER 2018-05-30 09:38 | Outpatient (CLI) | payer BC ==
[2018-05-30] MEDS ORDERED: XYLOCAINE TOPICAL 4% TP ONE ×2 (09:49→11:44)
[2018-05-30] MEDS ORDERED: AD OINTMENT TP ONE (10:02)
[2018-05-30] MEDS ORDERED: AD OINTMENT TP PRN (11:44)
== END 2018-05-30 09:39 | disposition home or self-care (01) ==
LOC: WOUND 09:38
PROVIDERS: ATTEND Surgery
DX: L97.822 Non-pressure chronic ulcer of other part of left lower leg with fat layer exposed (principal); L97.811 Non-pressure chronic ulcer of other part of right lower leg limited to breakdown of skin; I87.2 Venous insufficiency (chronic) (peripheral); I10 Essential (primary) hypertension; Z86.718 Personal history of other venous thrombosis and embolism; Z87.891 Personal history of nicotine dependence
CPT/HCPCS: 29581; A6250

== ENCOUNTER 2018-06-02 13:11 | Outpatient (CLI) | payer BC | END 2018-06-02 13:12 | disposition home or self-care (01) | LOC: WOUND 13:11 | PROVIDERS: ATTEND Surgery | DX: L97.822 Non-pressure chronic ulcer of other part of left lower leg with fat layer exposed (principal); L97.811 Non-pressure chronic ulcer of other part of right lower leg limited to breakdown of skin; I87.2 Venous insufficiency (chronic) (peripheral); I10 Essential (primary) hypertension; Z86.718 Personal history of other venous thrombosis and embolism; Z87.891 Personal history of nicotine dependence | CPT/HCPCS: 29581 ==

== ENCOUNTER 2018-06-06 09:40 | Outpatient (CLI) | payer BC ==
[2018-06-06] MEDS ORDERED: XYLOCAINE TOPICAL 4% TP ONE ×2 (10:17→10:43)
== END 2018-06-06 09:41 | disposition home or self-care (01) ==
LOC: WOUND 09:40
PROVIDERS: ATTEND Surgery
DX: L97.822 Non-pressure chronic ulcer of other part of left lower leg with fat layer exposed (principal); L97.811 Non-pressure chronic ulcer of other part of right lower leg limited to breakdown of skin; I87.2 Venous insufficiency (chronic) (peripheral); I10 Essential (primary) hypertension; Z86.718 Personal history of other venous thrombosis and embolism; Z87.891 Personal history of nicotine dependence

== ENCOUNTER 2018-06-09 13:24 | Outpatient (CLI) | payer BC | END 2018-06-09 13:25 | disposition home or self-care (01) | LOC: WOUND 13:24 | PROVIDERS: ATTEND Surgery | DX: L97.822 Non-pressure chronic ulcer of other part of left lower leg with fat layer exposed (principal); L97.812 Non-pressure chronic ulcer of other part of right lower leg with fat layer exposed; I87.2 Venous insufficiency (chronic) (peripheral); I10 Essential (primary) hypertension; Z86.718 Personal history of other venous thrombosis and embolism; Z87.891 Personal history of nicotine dependence | CPT/HCPCS: 29581 ==

== ENCOUNTER 2018-06-23 12:57 | Outpatient (CLI) | payer BC | END 2018-06-23 12:58 | disposition home or self-care (01) | LOC: WOUND 12:57 | PROVIDERS: ATTEND Surgery | DX: L97.822 Non-pressure chronic ulcer of other part of left lower leg with fat layer exposed (principal); L97.812 Non-pressure chronic ulcer of other part of right lower leg with fat layer exposed; I87.2 Venous insufficiency (chronic) (peripheral); I10 Essential (primary) hypertension; Z86.718 Personal history of other venous thrombosis and embolism; Z87.891 Personal history of nicotine dependence ==

== ENCOUNTER 2018-06-27 09:32 | Outpatient (CLI) | payer BC ==
[2018-06-27] MEDS ORDERED: XYLOCAINE TOPICAL 4% TP ONE ×2 (09:36→09:46)
[2018-06-27] MEDS ORDERED: SODIUM CHLORIDE FLUSH SYRINGE 10 ML IV ONE ×2 (09:37→09:46)
== END 2018-06-27 09:33 | disposition home or self-care (01) ==
LOC: WOUND 09:32
PROVIDERS: ATTEND Surgery
DX: L97.822 Non-pressure chronic ulcer of other part of left lower leg with fat layer exposed (principal); L97.812 Non-pressure chronic ulcer of other part of right lower leg with fat layer exposed; I87.2 Venous insufficiency (chronic) (peripheral); I10 Essential (primary) hypertension; Z86.718 Personal history of other venous thrombosis and embolism; Z87.891 Personal history of nicotine dependence
CPT/HCPCS: 11042; 15271; 15272; Q4158

== ENCOUNTER 2018-08-01 09:32 | Outpatient (CLI) | payer BC ==
[2018-08-01] MEDS ORDERED: XYLOCAINE TOPICAL 4% TP ONE ×2 (09:39→10:13)
[2018-08-01] MEDS ORDERED: SODIUM CHLORIDE FLUSH SYRINGE 10 ML IV ONE (09:39)
[2018-08-01] MEDS ORDERED: AD OINTMENT TP ONE (10:09)
[2018-08-01] MEDS ORDERED: AD OINTMENT TP PRN (10:13)
[2018-08-01] MEDS ORDERED: SODIUM CHLORIDE FLUSH SYRINGE 10 ML IV SCH (10:13)
== END 2018-08-01 09:33 | disposition home or self-care (01) ==
LOC: WOUND 09:32
PROVIDERS: ATTEND Surgery
DX: L97.822 Non-pressure chronic ulcer of other part of left lower leg with fat layer exposed (principal); L97.812 Non-pressure chronic ulcer of other part of right lower leg with fat layer exposed; I10 Essential (primary) hypertension; I87.8 Other specified disorders of veins; Z86.718 Personal history of other venous thrombosis and embolism; Z87.891 Personal history of nicotine dependence
CPT/HCPCS: 11042; 15271; 29581; Q4158; A6250

== ENCOUNTER 2018-08-08 09:41 | Outpatient (CLI) | payer BC ==
[2018-08-08] MEDS ORDERED: XYLOCAINE TOPICAL 4% TP ONE ×2 (09:49→10:43)
[2018-08-08] MEDS ORDERED: SODIUM CHLORIDE FLUSH SYRINGE 10 ML IV ONE ×2 (09:49→10:43)
== END 2018-08-08 09:42 | disposition home or self-care (01) ==
LOC: WOUND 09:41
PROVIDERS: ATTEND Surgery
DX: L97.822 Non-pressure chronic ulcer of other part of left lower leg with fat layer exposed (principal); L97.812 Non-pressure chronic ulcer of other part of right lower leg with fat layer exposed; I87.2 Venous insufficiency (chronic) (peripheral); I10 Essential (primary) hypertension; Z86.718 Personal history of other venous thrombosis and embolism; Z87.891 Personal history of nicotine dependence; Z85.79 Personal history of other malignant neoplasms of lymphoid, hematopoietic and related tissues
CPT/HCPCS: 15271; 29581; Q4158

== ENCOUNTER 2018-08-15 09:34 | Outpatient (CLI) | payer BC ==
[2018-08-15] MEDS ORDERED: XYLOCAINE TOPICAL 4% TP ONE ×2 (09:40→12:00)
[2018-08-15] MEDS ORDERED: SODIUM CHLORIDE FLUSH SYRINGE 10 ML IV ONE (09:40)
[2018-08-15] MEDS ORDERED: AD OINTMENT TP ONE (10:30)
[2018-08-15] MEDS ORDERED: AD OINTMENT TP PRN (11:44)
[2018-08-15] MEDS ORDERED: SODIUM CHLORIDE FLUSH SYRINGE 10 ML IV SCH (11:44)
== END 2018-08-15 09:35 | disposition home or self-care (01) ==
LOC: WOUND 09:34
PROVIDERS: ATTEND Surgery
DX: L97.822 Non-pressure chronic ulcer of other part of left lower leg with fat layer exposed (principal); L97.812 Non-pressure chronic ulcer of other part of right lower leg with fat layer exposed; I87.2 Venous insufficiency (chronic) (peripheral); I10 Essential (primary) hypertension; Z87.891 Personal history of nicotine dependence; Z86.718 Personal history of other venous thrombosis and embolism
CPT/HCPCS: 15271; 29581; Q4158; A6250

== ENCOUNTER 2018-09-12 09:49 | Outpatient (CLI) | payer BC ==
[2018-09-12] MEDS ORDERED: XYLOCAINE TOPICAL 4% TP ONE (10:11)
== END 2018-09-12 09:50 | disposition home or self-care (01) ==
LOC: WOUND 09:49
PROVIDERS: ATTEND Surgery
DX: L97.822 Non-pressure chronic ulcer of other part of left lower leg with fat layer exposed (principal); I10 Essential (primary) hypertension; Z86.718 Personal history of other venous thrombosis and embolism; Z87.891 Personal history of nicotine dependence

== ENCOUNTER 2018-09-15 11:55 | Outpatient (CLI) | payer BC | END 2018-09-15 11:56 | disposition home or self-care (01) | LOC: WOUND 11:55 ==

== ENCOUNTER 2018-09-19 09:40 | Outpatient (CLI) | payer BC ==
[2018-09-19] MEDS ORDERED: XYLOCAINE TOPICAL 4% TP ONE (09:46)
[2018-09-19] MEDS ORDERED: AD OINTMENT TP SCH (11:00)
== END 2018-09-19 09:41 | disposition home or self-care (01) ==
LOC: WOUND 09:40
PROVIDERS: ATTEND Surgery
DX: L97.822 Non-pressure chronic ulcer of other part of left lower leg with fat layer exposed (principal); L97.812 Non-pressure chronic ulcer of other part of right lower leg with fat layer exposed; I87.2 Venous insufficiency (chronic) (peripheral); I10 Essential (primary) hypertension; Z86.718 Personal history of other venous thrombosis and embolism; Z87.891 Personal history of nicotine dependence
CPT/HCPCS: A6250

== ENCOUNTER 2018-09-26 09:39 | Outpatient (CLI) | payer BC ==
[2018-09-26] MEDS ORDERED: XYLOCAINE TOPICAL 4% TP ONE (10:02)
== END 2018-09-26 09:40 | disposition home or self-care (01) ==
LOC: WOUND 09:39
PROVIDERS: ATTEND Surgery
DX: I82.502 Chronic embolism and thrombosis of unspecified deep veins of left lower extremity (principal); L97.822 Non-pressure chronic ulcer of other part of left lower leg with fat layer exposed; L97.812 Non-pressure chronic ulcer of other part of right lower leg with fat layer exposed; I10 Essential (primary) hypertension; Z87.891 Personal history of nicotine dependence

== ENCOUNTER 2018-09-29 08:27 | Outpatient (CLI) | payer BC | END 2018-09-29 08:28 | disposition home or self-care (01) | LOC: WOUND 08:27 ==

== ENCOUNTER 2018-10-03 09:41 | Outpatient (CLI) | payer BC ==
[2018-10-03] MEDS ORDERED: AD OINTMENT TP PRN (09:50)
[2018-10-03] MEDS ORDERED: XYLOCAINE TOPICAL 4% TP ONE (09:50)
[2018-10-03] MEDS ORDERED: SILVER NITRATE TP ONE (09:51)
== END 2018-10-03 09:42 | disposition home or self-care (01) ==
LOC: WOUND 09:41
PROVIDERS: ATTEND Surgery
DX: I82.502 Chronic embolism and thrombosis of unspecified deep veins of left lower extremity (principal); L97.822 Non-pressure chronic ulcer of other part of left lower leg with fat layer exposed; L97.812 Non-pressure chronic ulcer of other part of right lower leg with fat layer exposed; I10 Essential (primary) hypertension; I87.8 Other specified disorders of veins; Z87.891 Personal history of nicotine dependence
CPT/HCPCS: 29581; A6250

== ENCOUNTER 2018-10-06 13:03 | Outpatient (CLI) | payer BC ==
[2018-10-06] MEDS ORDERED: AD OINTMENT TP PRN (13:22)
== END 2018-10-06 13:04 | disposition home or self-care (01) ==
LOC: WOUND 13:03
PROVIDERS: ATTEND Surgery
DX: I82.502 Chronic embolism and thrombosis of unspecified deep veins of left lower extremity (principal); L97.822 Non-pressure chronic ulcer of other part of left lower leg with fat layer exposed; L97.811 Non-pressure chronic ulcer of other part of right lower leg limited to breakdown of skin; I87.2 Venous insufficiency (chronic) (peripheral); I10 Essential (primary) hypertension; Z87.891 Personal history of nicotine dependence
CPT/HCPCS: A6250

== ENCOUNTER 2018-10-10 09:56 | Outpatient (CLI) | payer BC ==
[2018-10-10] MEDS ORDERED: XYLOCAINE TOPICAL 4% TP ONE (10:08)
== END 2018-10-10 09:57 | disposition home or self-care (01) ==
LOC: WOUND 09:56
PROVIDERS: ATTEND Surgery
DX: I82.502 Chronic embolism and thrombosis of unspecified deep veins of left lower extremity (principal); L97.822 Non-pressure chronic ulcer of other part of left lower leg with fat layer exposed; L97.812 Non-pressure chronic ulcer of other part of right lower leg with fat layer exposed; I10 Essential (primary) hypertension; I87.8 Other specified disorders of veins; Z87.891 Personal history of nicotine dependence

== ENCOUNTER 2018-10-13 12:56 | Outpatient (CLI) | payer BC | END 2018-10-13 12:57 | disposition home or self-care (01) | LOC: WOUND 12:56 ==

== ENCOUNTER 2018-10-17 09:38 | Outpatient (CLI) | payer BC | END 2018-10-17 09:39 | disposition home or self-care (01) | LOC: WOUND 09:38 ==

== ENCOUNTER 2018-10-24 09:46 | Outpatient (CLI) | payer BC ==
[2018-10-24] MEDS ORDERED: AD OINTMENT TP SCH (11:00)
== END 2018-10-24 09:47 | disposition home or self-care (01) ==
LOC: WOUND 09:46
PROVIDERS: ATTEND Surgery
DX: L97.822 Non-pressure chronic ulcer of other part of left lower leg with fat layer exposed (principal); L97.811 Non-pressure chronic ulcer of other part of right lower leg limited to breakdown of skin; I82.502 Chronic embolism and thrombosis of unspecified deep veins of left lower extremity; I87.8 Other specified disorders of veins; I10 Essential (primary) hypertension; Z87.891 Personal history of nicotine dependence
CPT/HCPCS: A6250

== ENCOUNTER 2018-10-27 12:59 | Outpatient (CLI) | payer BC | END 2018-10-27 13:00 | disposition home or self-care (01) | LOC: WOUND 12:59 ==

== ENCOUNTER 2018-10-31 09:48 | Outpatient (CLI) | payer BC ==
[2018-10-31] MEDS ORDERED: XYLOCAINE TOPICAL 4% TP ONE (09:49)
[2018-10-31] MEDS ORDERED: AD OINTMENT TP PRN (10:18)
== END 2018-10-31 09:49 | disposition home or self-care (01) ==
LOC: WOUND 09:48
PROVIDERS: ATTEND Surgery
DX: L97.822 Non-pressure chronic ulcer of other part of left lower leg with fat layer exposed (principal); L97.811 Non-pressure chronic ulcer of other part of right lower leg limited to breakdown of skin; I82.502 Chronic embolism and thrombosis of unspecified deep veins of left lower extremity; I87.8 Other specified disorders of veins; I10 Essential (primary) hypertension; Z87.891 Personal history of nicotine dependence
CPT/HCPCS: 29581; A6250

== ENCOUNTER 2018-11-07 09:39 | Outpatient (CLI) | payer BC ==
[2018-11-07] MEDS ORDERED: AD OINTMENT TP PRN (10:30)
[2018-11-07] MEDS ORDERED: SILVER NITRATE TP ONE (10:30)
[2018-11-07] MEDS ORDERED: XYLOCAINE TOPICAL 4% TP ONE (10:30)
== END 2018-11-07 09:40 | disposition home or self-care (01) ==
LOC: WOUND 09:39
PROVIDERS: ATTEND Surgery
DX: L97.812 Non-pressure chronic ulcer of other part of right lower leg with fat layer exposed (principal); L97.822 Non-pressure chronic ulcer of other part of left lower leg with fat layer exposed; I10 Essential (primary) hypertension; I82.502 Chronic embolism and thrombosis of unspecified deep veins of left lower extremity; Z87.891 Personal history of nicotine dependence
CPT/HCPCS: 29581; A6250

== ENCOUNTER 2018-11-10 12:55 | Outpatient (CLI) | payer BC | END 2018-11-10 12:56 | disposition home or self-care (01) | LOC: WOUND 12:55 ==

== ENCOUNTER 2018-11-14 09:57 | Outpatient (CLI) | payer BC ==
[2018-11-14] MEDS ORDERED: XYLOCAINE TOPICAL 4% TP ONE (10:30)
[2018-11-14] MEDS ORDERED: SILVER NITRATE TP ONE (10:30)
== END 2018-11-14 09:58 | disposition home or self-care (01) ==
LOC: WOUND 09:57
PROVIDERS: ATTEND Surgery
DX: L97.822 Non-pressure chronic ulcer of other part of left lower leg with fat layer exposed (principal); L97.812 Non-pressure chronic ulcer of other part of right lower leg with fat layer exposed; I82.502 Chronic embolism and thrombosis of unspecified deep veins of left lower extremity; I10 Essential (primary) hypertension; Z87.891 Personal history of nicotine dependence

== ENCOUNTER 2018-11-17 13:05 | Outpatient (CLI) | payer BC | END 2018-11-17 13:06 | disposition home or self-care (01) | LOC: WOUND 13:05 ==

== ENCOUNTER 2018-12-01 12:48 | Outpatient (CLI) | payer BC | END 2018-12-01 12:49 | disposition home or self-care (01) | LOC: WOUND 12:48 | CPT/HCPCS: 29581 ==

== ENCOUNTER 2018-12-05 09:52 | Outpatient (CLI) | payer BC | END 2018-12-05 09:53 | disposition home or self-care (01) | LOC: WOUND 09:52 | PROVIDERS: ATTEND Surgery | DX: L97.822 Non-pressure chronic ulcer of other part of left lower leg with fat layer exposed (principal); L97.812 Non-pressure chronic ulcer of other part of right lower leg with fat layer exposed; I87.8 Other specified disorders of veins; I82.502 Chronic embolism and thrombosis of unspecified deep veins of left lower extremity; I10 Essential (primary) hypertension; Z87.891 Personal history of nicotine dependence ==

== ENCOUNTER 2018-12-08 12:43 | Outpatient (CLI) | payer BC | END 2018-12-08 12:44 | disposition home or self-care (01) | LOC: WOUND 12:43 | PROVIDERS: ATTEND Surgery | DX: L97.822 Non-pressure chronic ulcer of other part of left lower leg with fat layer exposed (principal); L97.811 Non-pressure chronic ulcer of other part of right lower leg limited to breakdown of skin; I10 Essential (primary) hypertension; I87.8 Other specified disorders of veins; I82.502 Chronic embolism and thrombosis of unspecified deep veins of left lower extremity; Z87.891 Personal history of nicotine dependence ==

== ENCOUNTER 2018-12-12 09:45 | Outpatient (CLI) | payer BC | END 2018-12-12 09:46 | disposition home or self-care (01) | LOC: WOUND 09:45 | PROVIDERS: ATTEND Surgery | DX: L97.822 Non-pressure chronic ulcer of other part of left lower leg with fat layer exposed (principal); L97.812 Non-pressure chronic ulcer of other part of right lower leg with fat layer exposed; I82.502 Chronic embolism and thrombosis of unspecified deep veins of left lower extremity; I87.8 Other specified disorders of veins; I10 Essential (primary) hypertension; Z87.891 Personal history of nicotine dependence ==

== ENCOUNTER 2018-12-19 09:52 | Outpatient (CLI) | payer BC ==
[2018-12-19] MEDS ORDERED: XYLOCAINE TOPICAL 4% TP ONE (10:28)
[2018-12-19] MEDS ORDERED: AD OINTMENT TP SCH (11:00)
== END 2018-12-19 09:53 | disposition home or self-care (01) ==
LOC: WOUND 09:52
PROVIDERS: ATTEND Surgery
DX: L97.822 Non-pressure chronic ulcer of other part of left lower leg with fat layer exposed (principal); L97.812 Non-pressure chronic ulcer of other part of right lower leg with fat layer exposed; L84 Corns and callosities; I10 Essential (primary) hypertension; I87.8 Other specified disorders of veins; I82.502 Chronic embolism and thrombosis of unspecified deep veins of left lower extremity; Z87.891 Personal history of nicotine dependence
CPT/HCPCS: A6250

== ENCOUNTER 2018-12-26 09:30 | Outpatient (CLI) | payer BC ==
[2018-12-26] MEDS ORDERED: AD OINTMENT TP PRN (09:57)
== END 2018-12-26 09:31 | disposition home or self-care (01) ==
LOC: WOUND 09:30
PROVIDERS: ATTEND Surgery
DX: L97.822 Non-pressure chronic ulcer of other part of left lower leg with fat layer exposed (principal); L97.812 Non-pressure chronic ulcer of other part of right lower leg with fat layer exposed; I87.8 Other specified disorders of veins; I10 Essential (primary) hypertension; I82.502 Chronic embolism and thrombosis of unspecified deep veins of left lower extremity; Z87.891 Personal history of nicotine dependence
CPT/HCPCS: A6250

== ENCOUNTER 2018-12-29 12:43 | Outpatient (CLI) | payer BC | END 2018-12-29 12:44 | disposition home or self-care (01) | LOC: WOUND 12:43 | PROVIDERS: ATTEND Surgery | DX: L97.822 Non-pressure chronic ulcer of other part of left lower leg with fat layer exposed (principal); L97.821 Non-pressure chronic ulcer of other part of left lower leg limited to breakdown of skin; L97.811 Non-pressure chronic ulcer of other part of right lower leg limited to breakdown of skin; I87.8 Other specified disorders of veins; I10 Essential (primary) hypertension; I82.502 Chronic embolism and thrombosis of unspecified deep veins of left lower extremity; Z87.891 Personal history of nicotine dependence ==

== ENCOUNTER 2019-01-02 09:39 | Outpatient (CLI) | payer BC ==
[2019-01-02] MEDS ORDERED: XYLOCAINE TOPICAL 4% TP ONE (09:54)
== END 2019-01-02 09:40 | disposition home or self-care (01) ==
LOC: WOUND 09:39
PROVIDERS: ATTEND Surgery
DX: L97.822 Non-pressure chronic ulcer of other part of left lower leg with fat layer exposed (principal); L97.812 Non-pressure chronic ulcer of other part of right lower leg with fat layer exposed; I87.8 Other specified disorders of veins; I10 Essential (primary) hypertension; I82.502 Chronic embolism and thrombosis of unspecified deep veins of left lower extremity; Z87.891 Personal history of nicotine dependence

== ENCOUNTER 2019-01-05 12:59 | Outpatient (CLI) | payer BC | END 2019-01-05 13:00 | disposition home or self-care (01) | LOC: WOUND 12:59 | PROVIDERS: ATTEND Surgery | DX: L97.822 Non-pressure chronic ulcer of other part of left lower leg with fat layer exposed (principal); L97.811 Non-pressure chronic ulcer of other part of right lower leg limited to breakdown of skin; I87.8 Other specified disorders of veins; I82.502 Chronic embolism and thrombosis of unspecified deep veins of left lower extremity; I10 Essential (primary) hypertension; Z87.891 Personal history of nicotine dependence ==

== ENCOUNTER 2019-01-09 09:40 | Outpatient (CLI) | payer BC ==
[2019-01-09] MEDS ORDERED: SILVER NITRATE TP ONE (09:49)
[2019-01-09] MEDS ORDERED: XYLOCAINE TOPICAL 4% TP ONE (09:49)
== END 2019-01-09 09:41 | disposition home or self-care (01) ==
LOC: WOUND 09:40
PROVIDERS: ATTEND Surgery
DX: L97.822 Non-pressure chronic ulcer of other part of left lower leg with fat layer exposed (principal); L97.811 Non-pressure chronic ulcer of other part of right lower leg limited to breakdown of skin; I10 Essential (primary) hypertension; I87.8 Other specified disorders of veins; I82.502 Chronic embolism and thrombosis of unspecified deep veins of left lower extremity; Z87.891 Personal history of nicotine dependence

== ENCOUNTER 2019-01-16 09:30 | Outpatient (CLI) | payer BC | END 2019-01-16 09:31 | disposition home or self-care (01) | LOC: WOUND 09:30 | PROVIDERS: ATTEND Surgery | DX: L97.822 Non-pressure chronic ulcer of other part of left lower leg with fat layer exposed (principal); I87.8 Other specified disorders of veins; I82.502 Chronic embolism and thrombosis of unspecified deep veins of left lower extremity; I10 Essential (primary) hypertension ==

== ENCOUNTER 2019-01-19 12:58 | Outpatient (CLI) | payer BC | END 2019-01-19 12:59 | disposition home or self-care (01) | LOC: WOUND 12:58 | PROVIDERS: ATTEND Surgery | DX: L97.822 Non-pressure chronic ulcer of other part of left lower leg with fat layer exposed (principal); I87.8 Other specified disorders of veins; I82.502 Chronic embolism and thrombosis of unspecified deep veins of left lower extremity; I10 Essential (primary) hypertension ==

== ENCOUNTER 2019-01-30 09:51 | Outpatient (CLI) | payer BC | END 2019-01-30 09:52 | disposition home or self-care (01) | LOC: WOUND 09:51 | PROVIDERS: ATTEND Surgery | DX: L97.822 Non-pressure chronic ulcer of other part of left lower leg with fat layer exposed (principal); I87.8 Other specified disorders of veins; I10 Essential (primary) hypertension; Z86.718 Personal history of other venous thrombosis and embolism ==

== ENCOUNTER 2019-02-06 09:40 | Outpatient (CLI) | payer BC ==
[2019-02-06] MEDS ORDERED: AD OINTMENT TP PRN (10:00)
== END 2019-02-06 09:41 | disposition home or self-care (01) ==
LOC: WOUND 09:40
PROVIDERS: ATTEND Surgery
DX: L97.822 Non-pressure chronic ulcer of other part of left lower leg with fat layer exposed (principal); I87.8 Other specified disorders of veins; I10 Essential (primary) hypertension; Z86.718 Personal history of other venous thrombosis and embolism
CPT/HCPCS: 99212; A6250; G0463

== ENCOUNTER 2020-02-27 13:50 | Outpatient (CLI) | payer BC ==
[2020-02-27] MEDS ORDERED: LIDOCAINE (4%) 40 MG/ML TOPICAL SOLN 50 ML BOTTLE TP ONE (14:05)
== END 2020-02-27 13:51 | disposition home or self-care (01) ==
LOC: WOUND 13:50
PROVIDERS: ATTEND Surgery
DX: I87.313 Chronic venous hypertension (idiopathic) with ulcer of bilateral lower extremity (principal); L97.822 Non-pressure chronic ulcer of other part of left lower leg with fat layer exposed; L97.812 Non-pressure chronic ulcer of other part of right lower leg with fat layer exposed; Z87.891 Personal history of nicotine dependence; Z86.718 Personal history of other venous thrombosis and embolism
CPT/HCPCS: 11042; 11045; G0463; 99214

== ENCOUNTER 2020-03-05 13:08 | Outpatient (CLI) | payer BC ==
[2020-03-05] MEDS ORDERED: LIDOCAINE (4%) 40 MG/ML TOPICAL SOLN 50 ML BOTTLE TP ONE (14:00)
[2020-03-05] MEDS ORDERED: LIDOCAINE 1%/EPINEPHRINE 1:100,000 VIAL (20 ML) INFILTRATI ONE (14:18)
== END 2020-03-05 13:09 | disposition home or self-care (01) ==
LOC: WOUND 13:08
PROVIDERS: ATTEND Surgery
DX: I87.313 Chronic venous hypertension (idiopathic) with ulcer of bilateral lower extremity (principal); L97.822 Non-pressure chronic ulcer of other part of left lower leg with fat layer exposed; L97.812 Non-pressure chronic ulcer of other part of right lower leg with fat layer exposed; Z87.891 Personal history of nicotine dependence; Z86.718 Personal history of other venous thrombosis and embolism
CPT/HCPCS: 10060

== ENCOUNTER 2020-03-10 15:29 | Outpatient (CLI) | payer BC | END 2020-03-10 15:30 | disposition home or self-care (01) | LOC: WOUND 15:29 | PROVIDERS: ATTEND Surgery | DX: I87.313 Chronic venous hypertension (idiopathic) with ulcer of bilateral lower extremity (principal); L97.822 Non-pressure chronic ulcer of other part of left lower leg with fat layer exposed; L97.812 Non-pressure chronic ulcer of other part of right lower leg with fat layer exposed; Z87.891 Personal history of nicotine dependence; Z86.718 Personal history of other venous thrombosis and embolism ==

== ENCOUNTER 2020-03-13 10:50 | Outpatient (CLI) | payer BC ==
[2020-03-13] MEDS ORDERED: LIDOCAINE (4%) 40 MG/ML TOPICAL SOLN 50 ML BOTTLE TP ONE (11:10)
[2020-03-14] MEDS ORDERED: VITAMIN A & D OINT 56.7 GM TP SCH (10:00)
== END 2020-03-13 10:51 | disposition home or self-care (01) ==
LOC: WOUND 10:50
PROVIDERS: ATTEND Surgery
DX: I87.313 Chronic venous hypertension (idiopathic) with ulcer of bilateral lower extremity (principal); L97.822 Non-pressure chronic ulcer of other part of left lower leg with fat layer exposed; L97.812 Non-pressure chronic ulcer of other part of right lower leg with fat layer exposed; Z87.891 Personal history of nicotine dependence; Z86.718 Personal history of other venous thrombosis and embolism
CPT/HCPCS: 29581

== ENCOUNTER 2020-03-24 10:31 | Outpatient (CLI) | payer BC | END 2020-03-24 10:32 | disposition home or self-care (01) | LOC: WOUND 10:31 | PROVIDERS: ATTEND Surgery | DX: I87.313 Chronic venous hypertension (idiopathic) with ulcer of bilateral lower extremity (principal); L97.811 Non-pressure chronic ulcer of other part of right lower leg limited to breakdown of skin; L97.821 Non-pressure chronic ulcer of other part of left lower leg limited to breakdown of skin; S51.001D Unspecified open wound of right elbow, subsequent encounter; Z87.891 Personal history of nicotine dependence; Z86.718 Personal history of other venous thrombosis and embolism; Z85.79 Personal history of other malignant neoplasms of lymphoid, hematopoietic and related tissues; X58.XXXD Exposure to other specified factors, subsequent encounter ==

== ENCOUNTER 2020-04-01 09:24 | Outpatient (CLI) | payer BC ==
[2020-04-01] MEDS ORDERED: LIDOCAINE (4%) 40 MG/ML TOPICAL SOLN 50 ML BOTTLE TP ONE (10:00)
== END 2020-04-01 09:25 | disposition home or self-care (01) ==
LOC: WOUND 09:24
PROVIDERS: ATTEND Surgery
DX: I87.313 Chronic venous hypertension (idiopathic) with ulcer of bilateral lower extremity (principal); L97.822 Non-pressure chronic ulcer of other part of left lower leg with fat layer exposed; L97.812 Non-pressure chronic ulcer of other part of right lower leg with fat layer exposed; Z87.891 Personal history of nicotine dependence; Z86.718 Personal history of other venous thrombosis and embolism; Z85.79 Personal history of other malignant neoplasms of lymphoid, hematopoietic and related tissues

== ENCOUNTER 2020-04-03 10:20 | Outpatient (CLI) | payer BC ==
[2020-04-03] MEDS ORDERED: VITAMIN A & D OINT 56.7 GM TP SCH (11:00)
[2020-04-03] MEDS ORDERED: LIDOCAINE (4%) 40 MG/ML TOPICAL SOLN 50 ML BOTTLE TP ONE (11:00)
== END 2020-04-03 10:21 | disposition home or self-care (01) ==
LOC: WOUND 10:20
PROVIDERS: ATTEND Surgery
DX: I87.313 Chronic venous hypertension (idiopathic) with ulcer of bilateral lower extremity (principal); L97.822 Non-pressure chronic ulcer of other part of left lower leg with fat layer exposed; L97.812 Non-pressure chronic ulcer of other part of right lower leg with fat layer exposed; Z87.891 Personal history of nicotine dependence; Z86.718 Personal history of other venous thrombosis and embolism; Z85.79 Personal history of other malignant neoplasms of lymphoid, hematopoietic and related tissues
CPT/HCPCS: 29581; A6250

== ENCOUNTER 2020-04-16 09:40 | Outpatient (CLI) | payer BC ==
[2020-04-16] MEDS ORDERED: LIDOCAINE (4%) 40 MG/ML TOPICAL SOLN 50 ML BOTTLE TP ONE (09:48)
== END 2020-04-16 09:41 | disposition home or self-care (01) ==
LOC: WOUND 09:40
PROVIDERS: ATTEND Surgery
DX: I87.313 Chronic venous hypertension (idiopathic) with ulcer of bilateral lower extremity (principal); L97.822 Non-pressure chronic ulcer of other part of left lower leg with fat layer exposed; L97.811 Non-pressure chronic ulcer of other part of right lower leg limited to breakdown of skin; Z86.718 Personal history of other venous thrombosis and embolism; Z85.79 Personal history of other malignant neoplasms of lymphoid, hematopoietic and related tissues; Z79.891 Long term (current) use of opiate analgesic
CPT/HCPCS: 29581

== ENCOUNTER 2020-04-24 10:01 | Outpatient (CLI) | payer BC ==
[2020-04-24] MEDS ORDERED: LIDOCAINE (4%) 40 MG/ML TOPICAL SOLN 50 ML BOTTLE TP ONE (10:04)
== END 2020-04-24 10:02 | disposition home or self-care (01) ==
LOC: WOUND 10:01
PROVIDERS: ATTEND Surgery
DX: I87.313 Chronic venous hypertension (idiopathic) with ulcer of bilateral lower extremity (principal); L97.822 Non-pressure chronic ulcer of other part of left lower leg with fat layer exposed; L97.811 Non-pressure chronic ulcer of other part of right lower leg limited to breakdown of skin; Z86.718 Personal history of other venous thrombosis and embolism; Z85.79 Personal history of other malignant neoplasms of lymphoid, hematopoietic and related tissues; Z87.891 Personal history of nicotine dependence
CPT/HCPCS: 29581

== ENCOUNTER 2020-04-28 09:44 | Outpatient (CLI) | payer BC | END 2020-04-28 09:45 | disposition home or self-care (01) | LOC: WOUND 09:44 | PROVIDERS: ATTEND Surgery | DX: I87.313 Chronic venous hypertension (idiopathic) with ulcer of bilateral lower extremity (principal); L97.811 Non-pressure chronic ulcer of other part of right lower leg limited to breakdown of skin; L97.821 Non-pressure chronic ulcer of other part of left lower leg limited to breakdown of skin; Z86.718 Personal history of other venous thrombosis and embolism; Z85.79 Personal history of other malignant neoplasms of lymphoid, hematopoietic and related tissues; Z87.891 Personal history of nicotine dependence ==

== ENCOUNTER 2020-05-01 09:48 | Outpatient (CLI) | payer BC ==
[2020-05-01] MEDS ORDERED: LIDOCAINE (4%) 40 MG/ML TOPICAL SOLN 50 ML BOTTLE TP ONE (10:30)
[2020-05-01] MEDS ORDERED: VITAMIN A & D OINT 56.7 GM TP SCH (11:00)
== END 2020-05-01 09:49 | disposition home or self-care (01) ==
LOC: WOUND 09:48
PROVIDERS: ATTEND Surgery
DX: I87.313 Chronic venous hypertension (idiopathic) with ulcer of bilateral lower extremity (principal); L97.822 Non-pressure chronic ulcer of other part of left lower leg with fat layer exposed; L97.811 Non-pressure chronic ulcer of other part of right lower leg limited to breakdown of skin; Z86.718 Personal history of other venous thrombosis and embolism; Z85.79 Personal history of other malignant neoplasms of lymphoid, hematopoietic and related tissues; Z87.891 Personal history of nicotine dependence
CPT/HCPCS: 29581; A6250

== ENCOUNTER 2020-05-05 09:37 | Outpatient (CLI) | payer BC | END 2020-05-05 09:38 | disposition home or self-care (01) | LOC: WOUND 09:37 | PROVIDERS: ATTEND Surgery | DX: I87.313 Chronic venous hypertension (idiopathic) with ulcer of bilateral lower extremity (principal); L97.822 Non-pressure chronic ulcer of other part of left lower leg with fat layer exposed; L97.812 Non-pressure chronic ulcer of other part of right lower leg with fat layer exposed; Z86.718 Personal history of other venous thrombosis and embolism; Z85.79 Personal history of other malignant neoplasms of lymphoid, hematopoietic and related tissues; Z87.891 Personal history of nicotine dependence | CPT/HCPCS: 29581 ==

== ENCOUNTER 2020-05-14 09:39 | Outpatient (CLI) | payer BC ==
[2020-05-14] MEDS ORDERED: LIDOCAINE (4%) 40 MG/ML TOPICAL SOLN 50 ML BOTTLE TP ONE (10:30)
== END 2020-05-14 09:40 | disposition home or self-care (01) ==
LOC: WOUND 09:39
PROVIDERS: ATTEND Surgery
DX: I87.313 Chronic venous hypertension (idiopathic) with ulcer of bilateral lower extremity (principal); L97.822 Non-pressure chronic ulcer of other part of left lower leg with fat layer exposed; L97.812 Non-pressure chronic ulcer of other part of right lower leg with fat layer exposed; Z86.718 Personal history of other venous thrombosis and embolism; Z85.79 Personal history of other malignant neoplasms of lymphoid, hematopoietic and related tissues; Z87.891 Personal history of nicotine dependence
CPT/HCPCS: 29581

== ENCOUNTER 2020-05-19 10:34 | Outpatient (CLI) | payer BC | END 2020-05-19 10:35 | disposition home or self-care (01) | LOC: WOUND 10:34 | PROVIDERS: ATTEND Surgery | DX: I87.313 Chronic venous hypertension (idiopathic) with ulcer of bilateral lower extremity (principal); L97.822 Non-pressure chronic ulcer of other part of left lower leg with fat layer exposed; L97.812 Non-pressure chronic ulcer of other part of right lower leg with fat layer exposed; Z86.718 Personal history of other venous thrombosis and embolism; Z85.79 Personal history of other malignant neoplasms of lymphoid, hematopoietic and related tissues; Z87.891 Personal history of nicotine dependence ==

== ENCOUNTER 2020-05-22 10:03 | Outpatient (CLI) | payer BC ==
[2020-05-22] MEDS ORDERED: LIDOCAINE (4%) 40 MG/ML TOPICAL SOLN 50 ML BOTTLE TP ONE (10:04)
== END 2020-05-22 10:04 | disposition home or self-care (01) ==
LOC: WOUND 10:03
PROVIDERS: ATTEND Surgery
DX: I87.313 Chronic venous hypertension (idiopathic) with ulcer of bilateral lower extremity (principal); L97.822 Non-pressure chronic ulcer of other part of left lower leg with fat layer exposed; L97.812 Non-pressure chronic ulcer of other part of right lower leg with fat layer exposed; Z86.718 Personal history of other venous thrombosis and embolism; Z85.79 Personal history of other malignant neoplasms of lymphoid, hematopoietic and related tissues; Z87.891 Personal history of nicotine dependence
CPT/HCPCS: 29581

== ENCOUNTER 2020-06-02 13:08 | Outpatient (CLI) | payer BC | END 2020-06-02 13:09 | disposition home or self-care (01) | LOC: WOUND 13:08 | PROVIDERS: ATTEND Surgery | DX: I87.313 Chronic venous hypertension (idiopathic) with ulcer of bilateral lower extremity (principal); L97.812 Non-pressure chronic ulcer of other part of right lower leg with fat layer exposed; L97.822 Non-pressure chronic ulcer of other part of left lower leg with fat layer exposed; Z86.718 Personal history of other venous thrombosis and embolism; Z85.79 Personal history of other malignant neoplasms of lymphoid, hematopoietic and related tissues; Z87.891 Personal history of nicotine dependence | CPT/HCPCS: 29581 ==

== ENCOUNTER 2020-06-05 10:07 | Outpatient (CLI) | payer BC ==
[2020-06-05] MEDS ORDERED: LIDOCAINE (4%) 40 MG/ML TOPICAL SOLN 50 ML BOTTLE TP ONE (10:10)
== END 2020-06-05 10:08 | disposition home or self-care (01) ==
LOC: WOUND 10:07
PROVIDERS: ATTEND Surgery
DX: I87.313 Chronic venous hypertension (idiopathic) with ulcer of bilateral lower extremity (principal); L97.812 Non-pressure chronic ulcer of other part of right lower leg with fat layer exposed; L97.822 Non-pressure chronic ulcer of other part of left lower leg with fat layer exposed; Z86.718 Personal history of other venous thrombosis and embolism; Z85.79 Personal history of other malignant neoplasms of lymphoid, hematopoietic and related tissues; Z87.891 Personal history of nicotine dependence
CPT/HCPCS: 29581

== ENCOUNTER 2020-06-11 10:27 | Outpatient (CLI) | payer BC ==
[2020-06-11] MEDS ORDERED: LIDOCAINE (4%) 40 MG/ML TOPICAL SOLN 50 ML BOTTLE TP ONE (11:00)
== END 2020-06-11 10:28 | disposition home or self-care (01) ==
LOC: WOUND 10:27
PROVIDERS: ATTEND Surgery
DX: I87.313 Chronic venous hypertension (idiopathic) with ulcer of bilateral lower extremity (principal); L97.812 Non-pressure chronic ulcer of other part of right lower leg with fat layer exposed; L97.822 Non-pressure chronic ulcer of other part of left lower leg with fat layer exposed; Z86.718 Personal history of other venous thrombosis and embolism; Z85.79 Personal history of other malignant neoplasms of lymphoid, hematopoietic and related tissues; Z87.891 Personal history of nicotine dependence
CPT/HCPCS: 29581

== ENCOUNTER 2020-06-13 10:32 | Outpatient (CLI) | payer BC | END 2020-06-13 10:33 | disposition home or self-care (01) | LOC: WOUND 10:32 | PROVIDERS: ATTEND Surgery | DX: I87.313 Chronic venous hypertension (idiopathic) with ulcer of bilateral lower extremity (principal); L97.812 Non-pressure chronic ulcer of other part of right lower leg with fat layer exposed; L97.822 Non-pressure chronic ulcer of other part of left lower leg with fat layer exposed; Z85.79 Personal history of other malignant neoplasms of lymphoid, hematopoietic and related tissues; Z86.718 Personal history of other venous thrombosis and embolism; Z87.891 Personal history of nicotine dependence | CPT/HCPCS: 29581 ==

== ENCOUNTER 2020-06-17 12:00 | Outpatient (CLI) | payer BC | END 2020-06-17 13:00 | disposition home or self-care (01) | LOC: WOUND 12:00 | PROVIDERS: ATTEND Surgery | DX: I87.313 Chronic venous hypertension (idiopathic) with ulcer of bilateral lower extremity (principal); L97.812 Non-pressure chronic ulcer of other part of right lower leg with fat layer exposed; L97.822 Non-pressure chronic ulcer of other part of left lower leg with fat layer exposed; Z85.79 Personal history of other malignant neoplasms of lymphoid, hematopoietic and related tissues; Z86.718 Personal history of other venous thrombosis and embolism; Z87.891 Personal history of nicotine dependence | CPT/HCPCS: 29581 ==

== ENCOUNTER 2020-06-19 10:41 | Outpatient (CLI) | payer BC ==
[2020-06-19] MEDS ORDERED: LIDOCAINE (4%) 40 MG/ML TOPICAL SOLN 50 ML BOTTLE TP ONE (10:50)
== END 2020-06-19 10:42 | disposition home or self-care (01) ==
LOC: WOUND 10:41
PROVIDERS: ATTEND Surgery
DX: I87.313 Chronic venous hypertension (idiopathic) with ulcer of bilateral lower extremity (principal); L97.812 Non-pressure chronic ulcer of other part of right lower leg with fat layer exposed; L97.822 Non-pressure chronic ulcer of other part of left lower leg with fat layer exposed; Z85.79 Personal history of other malignant neoplasms of lymphoid, hematopoietic and related tissues; Z86.718 Personal history of other venous thrombosis and embolism; Z87.891 Personal history of nicotine dependence
CPT/HCPCS: 29581

== ENCOUNTER 2020-06-24 09:53 | Outpatient (CLI) | payer BC | END 2020-06-24 09:54 | disposition home or self-care (01) | LOC: WOUND 09:53 | PROVIDERS: ATTEND Surgery | DX: I87.313 Chronic venous hypertension (idiopathic) with ulcer of bilateral lower extremity (principal); L97.812 Non-pressure chronic ulcer of other part of right lower leg with fat layer exposed; L97.822 Non-pressure chronic ulcer of other part of left lower leg with fat layer exposed; Z85.79 Personal history of other malignant neoplasms of lymphoid, hematopoietic and related tissues; Z86.718 Personal history of other venous thrombosis and embolism; Z87.891 Personal history of nicotine dependence | CPT/HCPCS: 29581; G0463; 99215 ==

== ENCOUNTER 2020-06-26 10:29 | Outpatient (CLI) | payer BC ==
[2020-06-26] MEDS ORDERED: LIDOCAINE (4%) 40 MG/ML TOPICAL SOLN 50 ML BOTTLE TP ONE (11:06)
== END 2020-06-26 10:30 | disposition home or self-care (01) ==
LOC: WOUND 10:29
PROVIDERS: ATTEND Surgery
DX: I87.313 Chronic venous hypertension (idiopathic) with ulcer of bilateral lower extremity (principal); L97.812 Non-pressure chronic ulcer of other part of right lower leg with fat layer exposed; L97.822 Non-pressure chronic ulcer of other part of left lower leg with fat layer exposed; Z85.79 Personal history of other malignant neoplasms of lymphoid, hematopoietic and related tissues; Z86.718 Personal history of other venous thrombosis and embolism; Z87.891 Personal history of nicotine dependence

== ENCOUNTER 2020-06-30 10:42 | Outpatient (CLI) | payer BC | END 2020-06-30 10:43 | disposition home or self-care (01) | LOC: WOUND 10:42 | PROVIDERS: ATTEND Surgery | DX: I87.313 Chronic venous hypertension (idiopathic) with ulcer of bilateral lower extremity (principal); L97.812 Non-pressure chronic ulcer of other part of right lower leg with fat layer exposed; L97.822 Non-pressure chronic ulcer of other part of left lower leg with fat layer exposed; Z85.79 Personal history of other malignant neoplasms of lymphoid, hematopoietic and related tissues; Z86.718 Personal history of other venous thrombosis and embolism; Z87.891 Personal history of nicotine dependence ==

== ENCOUNTER 2020-07-03 10:37 | Outpatient (CLI) | payer BC ==
[2020-07-03] MEDS ORDERED: LIDOCAINE (4%) 40 MG/ML TOPICAL SOLN 50 ML BOTTLE TP ONE (13:49)
[2020-07-04] MEDS ORDERED: VITAMIN A & D OINT 56.7 GM TP SCH (10:00)
== END 2020-07-03 10:38 | disposition home or self-care (01) ==
LOC: WOUND 10:37
PROVIDERS: ATTEND Surgery
DX: I87.313 Chronic venous hypertension (idiopathic) with ulcer of bilateral lower extremity (principal); L97.812 Non-pressure chronic ulcer of other part of right lower leg with fat layer exposed; L97.822 Non-pressure chronic ulcer of other part of left lower leg with fat layer exposed; Z85.79 Personal history of other malignant neoplasms of lymphoid, hematopoietic and related tissues; Z86.718 Personal history of other venous thrombosis and embolism; Z87.891 Personal history of nicotine dependence
CPT/HCPCS: 29581

== ENCOUNTER 2020-07-09 10:01 | Outpatient (CLI) | payer BC ==
[2020-07-09] MEDS ORDERED: LIDOCAINE (4%) 40 MG/ML TOPICAL SOLN 50 ML BOTTLE TP SCH (10:15)
[2020-07-09] MEDS ORDERED: SODIUM HYPOCHLORITE, DAKIN'S FULL STRENGTH (0.5%) 473 ML TOPICAL SOLN TP ONE (10:37)
== END 2020-07-09 10:02 | disposition home or self-care (01) ==
LOC: WOUND 10:01
PROVIDERS: ATTEND Surgery
DX: I87.313 Chronic venous hypertension (idiopathic) with ulcer of bilateral lower extremity (principal); L97.812 Non-pressure chronic ulcer of other part of right lower leg with fat layer exposed; L97.822 Non-pressure chronic ulcer of other part of left lower leg with fat layer exposed; Z85.79 Personal history of other malignant neoplasms of lymphoid, hematopoietic and related tissues; Z86.718 Personal history of other venous thrombosis and embolism; Z87.891 Personal history of nicotine dependence

== ENCOUNTER 2020-07-16 09:48 | Outpatient (CLI) | payer BC ==
[2020-07-16] MEDS ORDERED: LIDOCAINE (4%) 40 MG/ML TOPICAL SOLN 50 ML BOTTLE TP SCH (10:12)
== END 2020-07-16 09:49 | disposition home or self-care (01) ==
LOC: WOUND 09:48
PROVIDERS: ATTEND Surgery
DX: I87.313 Chronic venous hypertension (idiopathic) with ulcer of bilateral lower extremity (principal); L97.812 Non-pressure chronic ulcer of other part of right lower leg with fat layer exposed; L97.822 Non-pressure chronic ulcer of other part of left lower leg with fat layer exposed; Z85.79 Personal history of other malignant neoplasms of lymphoid, hematopoietic and related tissues; Z86.718 Personal history of other venous thrombosis and embolism; Z87.891 Personal history of nicotine dependence
CPT/HCPCS: 29581

== ENCOUNTER 2020-07-21 09:59 | Outpatient (CLI) | payer BC | END 2020-07-21 10:00 | disposition home or self-care (01) | LOC: WOUND 09:59 | PROVIDERS: ATTEND Surgery | DX: I87.313 Chronic venous hypertension (idiopathic) with ulcer of bilateral lower extremity (principal); L97.812 Non-pressure chronic ulcer of other part of right lower leg with fat layer exposed; L97.822 Non-pressure chronic ulcer of other part of left lower leg with fat layer exposed; Z85.79 Personal history of other malignant neoplasms of lymphoid, hematopoietic and related tissues; Z86.718 Personal history of other venous thrombosis and embolism; Z87.891 Personal history of nicotine dependence | CPT/HCPCS: 29581 ==

== ENCOUNTER 2020-07-24 09:51 | Outpatient (CLI) | payer BC ==
[2020-07-24] MEDS ORDERED: LIDOCAINE (4%) 40 MG/ML TOPICAL SOLN 50 ML BOTTLE TP ONE (10:05)
== END 2020-07-24 09:52 | disposition home or self-care (01) ==
LOC: WOUND 09:51
PROVIDERS: ATTEND Surgery
DX: I87.313 Chronic venous hypertension (idiopathic) with ulcer of bilateral lower extremity (principal); L97.812 Non-pressure chronic ulcer of other part of right lower leg with fat layer exposed; L97.822 Non-pressure chronic ulcer of other part of left lower leg with fat layer exposed; Z85.79 Personal history of other malignant neoplasms of lymphoid, hematopoietic and related tissues; Z86.718 Personal history of other venous thrombosis and embolism; Z87.891 Personal history of nicotine dependence
CPT/HCPCS: 29581

== ENCOUNTER 2020-07-30 09:30 | Outpatient (CLI) | payer BC ==
[2020-07-30] MEDS ORDERED: LIDOCAINE (4%) 40 MG/ML TOPICAL SOLN 50 ML BOTTLE TP NR (09:56)
== END 2020-07-30 09:31 | disposition home or self-care (01) ==
LOC: WOUND 09:30
PROVIDERS: ATTEND Surgery
DX: I87.313 Chronic venous hypertension (idiopathic) with ulcer of bilateral lower extremity (principal); L97.812 Non-pressure chronic ulcer of other part of right lower leg with fat layer exposed; L97.828 Non-pressure chronic ulcer of other part of left lower leg with other specified severity; Z85.79 Personal history of other malignant neoplasms of lymphoid, hematopoietic and related tissues; Z86.718 Personal history of other venous thrombosis and embolism; Z87.891 Personal history of nicotine dependence
CPT/HCPCS: 29581

== ENCOUNTER 2020-08-06 10:26 | Outpatient (CLI) | payer BC ==
[2020-08-06] MEDS ORDERED: LIDOCAINE (4%) 40 MG/ML TOPICAL SOLN 50 ML BOTTLE TP SCH (11:00)
== END 2020-08-06 10:27 | disposition home or self-care (01) ==
LOC: WOUND 10:26
PROVIDERS: ATTEND Surgery
DX: I87.313 Chronic venous hypertension (idiopathic) with ulcer of bilateral lower extremity (principal); L97.812 Non-pressure chronic ulcer of other part of right lower leg with fat layer exposed; L97.821 Non-pressure chronic ulcer of other part of left lower leg limited to breakdown of skin; Z85.79 Personal history of other malignant neoplasms of lymphoid, hematopoietic and related tissues; Z86.718 Personal history of other venous thrombosis and embolism; Z87.891 Personal history of nicotine dependence
CPT/HCPCS: 29581

== ENCOUNTER 2020-08-13 10:08 | Outpatient (CLI) | payer BC ==
[2020-08-13] MEDS ORDERED: LIDOCAINE (4%) 40 MG/ML TOPICAL SOLN 50 ML BOTTLE TP SCH (10:15)
[2020-08-13] MEDS ORDERED: SODIUM HYPOCHLORITE, DAKIN'S FULL STRENGTH (0.5%) 473 ML TOPICAL SOLN TP ONE (10:50)
== END 2020-08-13 10:09 | disposition home or self-care (01) ==
LOC: WOUND 10:08
PROVIDERS: ATTEND Surgery
DX: I87.313 Chronic venous hypertension (idiopathic) with ulcer of bilateral lower extremity (principal); L97.812 Non-pressure chronic ulcer of other part of right lower leg with fat layer exposed; L97.821 Non-pressure chronic ulcer of other part of left lower leg limited to breakdown of skin; Z86.79 Personal history of other diseases of the circulatory system; Z86.718 Personal history of other venous thrombosis and embolism; Z87.891 Personal history of nicotine dependence
CPT/HCPCS: 29581

== ENCOUNTER 2020-08-15 09:00 | Outpatient (CLI) | payer BC | END 2020-08-15 23:59 | disposition home or self-care (01) | LOC: WOUND 09:00 | PROVIDERS: ATTEND Surgery | DX: I87.313 Chronic venous hypertension (idiopathic) with ulcer of bilateral lower extremity (principal); L97.812 Non-pressure chronic ulcer of other part of right lower leg with fat layer exposed; L97.821 Non-pressure chronic ulcer of other part of left lower leg limited to breakdown of skin; Z86.79 Personal history of other diseases of the circulatory system; Z86.718 Personal history of other venous thrombosis and embolism; Z87.891 Personal history of nicotine dependence | CPT/HCPCS: 29581 ==

== ENCOUNTER 2020-08-18 10:08 | Outpatient (CLI) | payer BC | END 2020-08-18 10:09 | disposition home or self-care (01) | LOC: WOUND 10:08 | PROVIDERS: ATTEND Surgery | DX: I87.313 Chronic venous hypertension (idiopathic) with ulcer of bilateral lower extremity (principal); L97.812 Non-pressure chronic ulcer of other part of right lower leg with fat layer exposed; L97.821 Non-pressure chronic ulcer of other part of left lower leg limited to breakdown of skin; Z86.79 Personal history of other diseases of the circulatory system; Z86.718 Personal history of other venous thrombosis and embolism; Z87.891 Personal history of nicotine dependence | CPT/HCPCS: 99214; G0463 ==

== ENCOUNTER 2020-08-20 09:00 | Outpatient (CLI) | payer BC ==
[2020-08-20] MEDS ORDERED: LIDOCAINE (4%) 40 MG/ML TOPICAL SOLN 50 ML BOTTLE TP ONE (09:04)
== END 2020-08-20 09:01 | disposition home or self-care (01) ==
LOC: WOUND 09:00
PROVIDERS: ATTEND Surgery
DX: I87.313 Chronic venous hypertension (idiopathic) with ulcer of bilateral lower extremity (principal); L97.812 Non-pressure chronic ulcer of other part of right lower leg with fat layer exposed; L97.821 Non-pressure chronic ulcer of other part of left lower leg limited to breakdown of skin; Z86.79 Personal history of other diseases of the circulatory system; Z86.718 Personal history of other venous thrombosis and embolism; Z87.891 Personal history of nicotine dependence
CPT/HCPCS: 29581